=== PATIENT | female | born 1975 | race American Indian/Alaskan Native ===

== ENCOUNTER 2016-09-13 14:08 | Inpatient (IN) | payer MEDICAID ==
[2016-09-13 14:23] VITALS: BMI 36.5
--- NOTE | 2016-09-13 14:59 | ED PDOC ---
Arrival/HPI - General Chief Complaint: Dizziness/Lightheaded Time Seen by Provider: 09/13/16 14:54 Historian: Patient - History of Present Illness Narrative History of Present Illness (Text): 09/13/16 14:55 A 40 year old female presents to the emergency department complaining of a light pressure sensation in her head for the past few weeks. Patient states she has hx of poorly controlled hypertension. Pt also c/o heart burn sensation, states this feels similar to her previous hear burn symptoms. Pt also reports she has LLE heaviness, with which she woke up this morning. Ambulates with steady gait. Patient denies any fever, chills, nausea, vomiting, abdominal pain , chest pain, shortness of breath or any other complaints. Time/Duration: Other (few weeks) Symptom Course: Unchanged Quality: Other Context: Other Past Medical History - Provider Review Nursing Documentation Reviewed: Yes - Cardiac Hx Cardiac Disorders: Yes Hx Hypertension: Yes - Pulmonary Hx Respiratory Disorders: No - Neurological Hx Neurological Disorder: No - HEENT Hx HEENT Disorder: No - Renal Hx Renal Disorder: No - Endocrine/Metabolic Hx Endocrine Disorders: No - Hematological/Oncological Hx Blood Disorders: No - Integumentary Hx Dermatological Disorder: No - Musculoskeletal/Rheumatological Hx Musculoskeletal Disorders: No - Gastrointestinal Hx Gastrointestinal Disorders: Yes Hx Gastroesophageal Reflux: Yes - Genitourinary/Gynecological Hx Genitourinary Disorders: Yes (Left kidney mass) - Psychiatric Hx Psychophysiologic Disorder: No Hx Substance Use: No - Surgical History Hx Appendectomy: Yes Family/Social History - Physician Review Nursing Documentation Reviewed: Yes Family/Social History: No Known Family HX Smoking Status: Never Smoked Hx Alcohol Use: Yes Frequency of alcohol use: Socially Hx Substance Use: No Allergies/Home Meds Allergies/Adverse Reactions: Allergies morphine Allergy (Verified 09/13/16 14:23) RASH Home Medications: Home Meds Medication Instructions Recorded Confirmed Ranitidine HCl [Zantac] 150 mg PO BID 09/13/16 09/13/16 Physical Exam - Physical Exam Narrative Physical Exam (Text): - Review of Systems Constitutional: Normal. absent: Fatigue, Weight Change, Fevers Eyes: Normal ENT: Normal Respiratory: Normal absent: SOB, Cough, Sputum Cardiovascular: Normal absent: Chest pain, Palpitations, Syncope Gastrointestinal: Normal absent: Abdominal pain, Diarrhea, Nausea, Vomiting Genitourinary: Normal. absent: Dysuria, Frequency, Hematuria Musculoskeletal: (+) Left lower extremity heaviness absent: Arthralgias, Back Pain, Neck Pain Skin: Normal Neurological: (+) Light head pressure absent: Focal Weakness Endocrine: Normal Hemo/Lymphatic: Normal Psychiatric: Normal - Physical exam Patient appears age appropriate, speaking full sentences without difficulty - Systems Exam Head: Present: Atraumatic, Normocephalic Pupils: Present: PERRL Extraocular Muscles: Present: EOMI Conjunctiva: Present: Normal Mouth: Present: Moist Mucous Membranes Neck: Present: Normal Range of Motion. No: MIDLINE TENDERNESS, Paraspinal Tenderness Respiratory/Chest: Present: Clear to Auscultation, Good Air Exchange. No: Respiratory Distress, Accessory Muscle Use, Tachypnic Cardiovascular: Present: Regular Rate and Rhythm, Normal S1, S2, Peripheral Pulses Present. No: Murmurs Abdomen: Present: Normal Bowel Sounds, No: Tenderness, Peritoneal Signs, Rebound, Guarding, Distention Back: Present: Normal Inspection. No: Midline Tenderness, Paraspinal Tenderness Upper Extremity: Present: Normal Inspection. No: Cyanosis, Edema Lower Extremity: Present: Normal Inspection. No: Edema Neurological: Present: GCS=15, Speech Normal, cranial nerves II through XII fully intact with no cerebellar abnormality, neuro-sensory fully intact. No focal neurological deficits. Skin: Present: Warm, Dry, Normal Color. No: Rashes Lymphatic: Present: OX3, NI, NC Psychiatric: Present: Alert, Oriented x 3, Normal Insight, Normal Concentration Vital Signs Reviewed: Yes Vital Signs Temp Pulse Resp BP Pulse Ox 09/13/16 17:56 98 H 16 203/74 H 98 09/13/16 16:45 98 H 16 156/111 H 98 09/13/16 14:23 99.1 F 88 16 164/100 H 98 Temperature: Afebrile Blood Pressure: Hypertensive Pulse: Regular Respiratory Rate: Normal Appearance: Positive for: Well-Appearing, Non-Toxic, Comfortable Pain Distress: None Mental Status: Positive for: Alert and Oriented X 3 Medical Decision Making ED Course and Treatment: 09/13/16 14:55 Impression: A 40 year old female with light head pressure. Patient notes left lower extremity heaviness. Physical exam unremarkable, no focal neurological deficits. She is moving bilateral upper and lower extremities with no restriction, 5 out of 5 strength, and no pronator drift. Plan: -- Labs, imaging -- Reassess and disposition Progress Notes: 09/13/16 17:01 EKG interpreted by ER physician. Normal sinus. No ST-segment elevations. Normal intervals. PROCEDURE: CT HEAD WITHOUT CONTRAST. IMPRESSION: No acute intracranial hemorrhage. Questionable minimal chronic periventricular white matter ischemic changes. There are vague areas of low attenuation both basal nuclei that could represent volume averaging artifact however the possibility of a tiny chronic lacunar type infarcts cannot be completely excluded. CXR IMPRESSION: No acute consolidation. 09/13/16 17:[address] Kay, will obs for further w/u pt aware of and agrees with plan no focal neurological deficits on exam 09/13/16 18:40 called to bedside, informed that pt is aphasic. pt unable to speak to sister, but speaking to myself intermittently pt then was unable to lift RUE, then LUE. pt then able to lift RUE pt is responsive and able to follow commands Dr. Haynes saw patient pt's family insistent that we transfer pt to [facility]. per family's request, gloria Daniels from [facility] MICU director. He states that he will not accept patient, recommends admission and transfer later in pt's course pt's family aware and agree with plan - Lab Interpretations Lab Results: 09/13/16 15:15 09/13/16 15:15 Lab Results 09/13/16 16:08: Urine Color Yellow, Urine Appearance Clear, Urine pH 6.0, Ur Specific Park 1.025, Urine Protein Negative, Urine Glucose (UA) Negative, Urine Ketones Trace H, Urine Blood Trace-intact H, Urine Nitrate Negative, Urine Bilirubin Negative, Urine Urobilinogen 1.0 H, Ur Leukocyte Esterase Trace H, Urine RBC 0 - 2, Urine WBC 0 - 2, Ur Epithelial Cells 1 - 3, Urine Bacteria Trace 09/13/16 15:15: PT 11.0, INR 1.02, APTT 26.6 09/13/16 15:15: WBC 8.7, RBC 3.89, Hgb 11.5 L, Hct 33.9 L, MCV 87.1, MCH 29.6, MCHC 33.9, RDW 14.0, Plt Count 314, MPV 10.8, Gran % 60.4, Lymph % (Auto) 32.2, Butler % (Auto) 6.3 H, Eos % (Auto) 0.8 L, Baso % (Auto) 0.3, Gran # 5.24, Lymph # 2.8, Butler # 0.6, Eos # 0.1, Baso # 0.03 09/13/16 15:15: Sodium 140, Potassium 4.3, Chloride 104, Carbon Dioxide 25, Anion Gap 15, BUN 12, Creatinine 1.0, Est GFR ( Amer) > 60, Est GFR (Non- Af Amer) > 60, Random Glucose 86, Calcium 9.9, Total Bilirubin 0.6, AST 22, ALT 31, Alkaline Phosphatase 48, Lactate Dehydrogenase 625, Total Creatine Kinase 169, Troponin I < 0.01, Total Protein 8.4 H, Albumin 4.5, Globulin 4.0, Albumin/ Globulin Ratio 1.1 09/13/16 14:38: POC Glucose (mg/dL) 109 - RAD Interpretation Radiology Orders: 09/13/16 15:20 CHEST PORTABLE [RAD] Stat 09/13/16 15:35 HEAD W/O CONTRAST [CT] Stat - Medication Orders Current Medication Orders: Dextrose/Sodium Chloride (Dextrose 5%/0.45% Ns 1000 Ml) 1,000 mls @ 100 mls/hr IV .Q10H LEXII Lorazepam (Ativan) 2 mg IVP ONCE ONE Stop: 09/13/16 18:40 Discontinued Medications Aspirin (Aspirin Chewable) 324 mg PO STAT STA Stop: 09/13/16 17:09 Last Admin: 09/13/16 17:23 Dose: 324 mg Hydrochlorothiazide (Microzide) 12.5 mg PO STAT STA Stop: 09/13/16 15:21 Last Admin: 09/13/16 15:41 Dose: 12.5 mg Pantoprazole Sodium (Protonix Inj) 40 mg IVP STAT STA Stop: 09/13/16 16:43 Last Admin: 09/13/16 16:54 Dose: 40 mg - Scribe Statement The provider has reviewed the documentation as recorded by the Lizzy Gray Provider Scribe Attestation: All medical record entries made by the Scribe were at my direction and personally dictated by me. I have reviewed the chart and agree that the record accurately reflects my personal performance of the history, physical exam, medical decision making, and the department course for this patient. I have also personally directed, reviewed, and agree with the discharge instructions and disposition. Disposition/Present on Arrival - Present on Arrival Any Indicators Present on Arrival: No History of DVT/PE: No History of Uncontrolled Diabetes: No Urinary Catheter: No History of Decub. Ulcer: No History Surgical Site Infection Following: None - Disposition Have Diagnosis and Disposition been Completed?: Yes Diagnosis: Hypertension Disposition: HOSPITALIZED Disposition Time: 17:14 Patient Plan: Observation Patient Problems: Current Active Problems Problem Status Onset Hypertension Acute Condition: FAIR
[2016-09-13 15:26] LABS: ADD MANUAL DIFF? NO
[2016-09-13 16:02] LABS: BASO # 0.03 K/mm3 (0.0-2.0); BASO % 0.3 % (0.0-3.0); EOS # 0.1 (0.0-0.7); EOS % 0.8 % (1.5-5.0); GRAN # 5.24 (1.4-6.5); GRAN % 60.4 % (50.0-68.0); HEMATOCRIT 33.9 % (36.0-48.0); LYMPH # 2.8 (1.2-3.4); LYMPH % 32.2 % (22.0-35.0); MEAN CELL VOLUME 87.1 fL (80.0-105.0); MEAN CORPUSCULAR HEMOGLOBIN 29.6 pg (25.0-35.0); MEAN CORPUSCULAR HGB CONC 33.9 g/dl (31.0-37.0); MEAN PLATELET VOLUME 10.8 fl (7.0-11.0); MONO # 0.6 (0.1-0.6); MONO % 6.3 % (1.0-6.0); PLATELET COUNT 314 10^3/uL (120.0-450.0); WHITE BLOOD COUNT 8.7 10^3/ul (4.5-11.0)
[2016-09-13 16:07] LABS: ALB/GLOB RATIO 1.1 (1.1-1.8); ALKALINE PHOSPHATASE 48 U/L (38-133); ALT/SGPT 31 U/L (7-56); AST/SGOT 22 U/L (15-39); BILIRUBIN,TOTAL 0.6 mg/dL (0.2-1.3); BLOOD UREA NITROGEN 12 mg/dL (7-21); CALCIUM 9.9 mg/dL (8.4-10.5); CARBON DIOXIDE 25 mmol/L (21-33); CHLORIDE 104 mmol/L (98-107); GFR AFRICAN-AMERICAN > 60; GLUCOSE,RANDOM 86 mg/dL (70-110); POTASSIUM 4.3 mmol/L (3.6-5.0); SODIUM 140 mmol/L (132-148); TOTAL PROTEIN 8.4 g/dL (5.8-8.3)
[2016-09-13 16:08] LABS: INR 1.02 (0.93-1.08); PARTIAL THROMBOPLASTIN TIME 26.6 Seconds (23.7-30.8)
[2016-09-13 16:25] LABS: URINE BILIRUBIN NEGATIVE (NEGATIVE); URINE BLOOD TRACE-INTACT (NEGATIVE); URINE GLUCOSE (UA) NEGATIVE (NEGATIVE); URINE KETONE TRACE mg/dL (NEGATIVE); URINE LEUKOCYTE ESTERASE TRACE Leu/uL (NEGATIVE); URINE PROTEIN NEGATIVE mg/dL (<30 mg/dL)
[2016-09-13 16:32] LABS: URINE APPEARANCE CLEAR (CLEAR); URINE COLOR YELLOW (YELLOW)
[2016-09-13 16:53] LABS: URINE BACTERIA TRACE (NEG); URINE RBC 0 - 2 /hpf (0-2); URINE WBC 0 - 2 /hpf (0-6)
--- NOTE | 2016-09-13 16:56 | RAD ---
HISTORY: HTN COMPARISON: No prior. FINDINGS: LUNGS: No active pulmonary disease. PLEURA: No significant pleural effusion identified, no pneumothorax apparent. CARDIOVASCULAR: Heart size is upper limits of normal likely due to AP positioning. OSSEOUS STRUCTURES: No significant abnormalities. VISUALIZED UPPER ABDOMEN: Normal. OTHER FINDINGS: None. IMPRESSION: No acute consolidation.
[2016-09-13 16:57] LABS: TROPONIN I < 0.01 ng/mL
--- NOTE | 2016-09-13 17:01 | CT ---
PROCEDURE: CT HEAD WITHOUT CONTRAST. HISTORY: htn COMPARISON: None available. TECHNIQUE: Axial computed tomography images were obtained through the head/brain without intravenous contrast. Radiation dose: Total exam DLP = 822.62 mGy-cm. This CT exam was performed using one or more of the following dose reduction techniques: Automated exposure control, adjustment of the mA and/or kV according to patient size, and/or use of iterative reconstruction technique. FINDINGS: HEMORRHAGE: No acute parenchymal, subarachnoid or extra-axial hemorrhage. BRAIN: There may be some minimal chronic periventricular white matter ischemic changes. Vague areas of low attenuation the anterior limbs both internal capsules could represent some volume averaging of deep white matter deep however the possibility of a small chronic lacunar-type infarcts cannot be completely excluded. . No obvious parenchymal nor extra-axial mass or collection seen on this noncontrast study. . VENTRICLES: There is mild asymmetry of the lateral ventricles, left-sided which is slightly larger than the right felt to represent a anatomic variation. CALVARIUM: No acute calvarial fractures. PARANASAL SINUSES: Paranasal sinuses are well-developed and currently well-aerated. MASTOID AIR CELLS: Unremarkable as visualized. No inflammatory changes. OTHER FINDINGS: None. IMPRESSION: No acute intracranial hemorrhage. Questionable minimal chronic periventricular white matter ischemic changes. There are vague areas of low attenuation both basal nuclei that could represent volume averaging artifact however the possibility of a tiny chronic lacunar type infarcts cannot be completely excluded.
[2016-09-13] MEDS: Dextrose 5%/0.45% NS 1,000 ML IV SCH (18:54)
[2016-09-13] MEDS ORDERED: Labetalol 5 mg/ml Inj 20ML IV STA (18:54)
--- NOTE | 2016-09-13 20:27 | CP.PCM.HP ---
<Noble Wynn - Last Filed: 09/13/16 21:08> History of Present Illness - History of Present Illness History of Present Illness: 40F with pmh of uncontrolled HTN, Anemia, RA, 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 Upon admission to the the ED patient was able to ambulate and able to speak. Upon my evaluation of the patient later in the day, she had left sided Upper and lower extremity weakness and was aphasic. She admitted to noncompliance with any of her medications for hypertension or anemia and does not follow a doctor regularly. She was only able to communicate by moving her neck or shrugging her shoulders. Her family was present during interview and answered questions that the pt. was unable to answer. It was difficult to distinguish whether or not the patient did not want to speak or if she could not speak. She communicated the latter. However, on exam she was able to move her tongue and open her mouth and say "Ah", although it was only for 1 second. I did not appreciate any uvular deviation. The neurologist examined her and she did not move her left side. When I examined her she was able to grasp my hand with her left hand and squeeze slightly. After initial exam, per nurse, pt. was able to speak and said she was having difficulty breathing. At that time her O2 sat was 98% on room air. A short time later, she was breathing fine, but became aphasic again and did not complain of difficulty breathing. Initial workup in the ED included Head CT, which was negative for acute intracranial findings. Her EKG was NSR with no ST changes, initial troponin was negative and chest xray showed no acute pulmonary disease, no acute consolidation, and heart size was upper limits of normal. MRI showed no MRI evidence of acute infarction. On exam, she c/o headache, dizziness, chest pain, shortness of breath, right sided abdominal pain, menometorhagia, left sided upper and lower ext weakness, and not being able to speak. She denies changes in vision/hearing, neck pain, GI/ symptoms. PMH: HTN Anemia Kidney Tumor(resected) Rheumatoid Arthritis Anxiety/Depression PSH: left nephrectomy FH: Mother: from CVA at 48 Father: from Heart Failure in his 50's Aunts: HTN, Diabetes, Breast Cancer SH: lives with family Tob: denies Alc: socially Drugs: denies All: Morphine Present on Admission - Present on Admission Any Indicators Present on Admission: No Review of Systems - Constitutional Constitutional: Chills, Headache. absent: Anorexia, Fever - EENT Eyes: absent: Change in Vision Ears: Dizziness. absent: Decreased Hearing Nose/Mouth/Throat: Neck Pain. absent: Sore Throat - Cardiovascular Cardiovascular: Chest Pain (mild), Dyspnea. absent: Palpitations - Respiratory Respiratory: Dyspnea. absent: Cough - Gastrointestinal Gastrointestinal: Heartburn. absent: Hematemesis, Hematochezia - Genitourinary Genitourinary: absent: Difficulty Urinating, Dysuria, Urinary Incontinence - Reproductive: Female Reproductive:Female: Cycle <21 Days, Heavy Menses - Menstruation Menstruation: Cycle <21 Days, Heavy Menses - Musculoskeletal Musculoskeletal: Limited Range of Motion, Muscle Weakness (left side upper and lower ext), Neck Pain - Integumentary Integumentary: absent: Rash, Skin Pain, Wounds - Neurological Neurological: Abnormal Speech, Behavioral Changes, Dizziness, Focal Weakness ( left upper and lower ext), Headaches. absent: Abnormal Hearing - Psychiatric Psychiatric: Anxiety, Depression. absent: Suicidal Ideation - Endocrine Endocrine: Cold Intolorance. absent: Heat Intolorance, Palpitations, Polydipsia , Polyphagia, Polyuria Past Patient History - Past Social History Smoking Status: Never Smoked Chewing Tobacco Use: No Cigar Use: No Alcohol: Social Drugs: Denies Home Situation {Lives}: With Family - CARDIAC Hx Cardiac Disorders: Yes Hx Hypertension: Yes - PULMONARY Hx Respiratory Disorders: No - NEUROLOGICAL Hx Neurological Disorder: No - HEENT Hx HEENT Problems: No - RENAL Hx Chronic Kidney Disease: Yes Other/Comment: Left Kidney Tumor - ENDOCRINE/METABOLIC Hx Endocrine Disorders: No - HEMATOLOGICAL/ONCOLOGICAL Hx Blood Disorders: Yes Hx Anemia: Yes (Iron Def) - INTEGUMENTARY Hx Dermatological Problems: No - MUSCULOSKELETAL/RHEUMATOLOGICAL Hx Musculoskeletal Disorders: No - GASTROINTESTINAL Hx Gastrointestinal Disorders: Yes Hx Gastroesophageal Reflux: Yes - GENITOURINARY/GYNECOLOGICAL Hx Genitourinary Disorders: Yes (Left kidney mass) - PSYCHIATRIC Hx Psychophysiologic Disorder: Yes Hx Anxiety: Yes Hx Depression: Yes Hx Substance Use: No - SURGICAL HISTORY Hx Appendectomy: Yes Other/Comment: left nephrectomy - ANESTHESIA Hx Anesthesia: Yes Meds Allergies/Adverse Reactions: Allergies Allergy/AdvReac Type Severity Reaction Status Date / Time morphine Allergy RASH Verified 09/13/16 14:23 Physical Exam - Constitutional Appears: Non-toxic - Head Exam Head Exam: ATRAUMATIC, NORMOCEPHALIC - Eye Exam Eye Exam: EOMI Pupil Exam: PERRL - ENT Exam ENT Exam: Mucous Membranes Moist - Neck Exam Neck exam: Positive for: Full Rom. Negative for: Lymphadenopathy - Respiratory Exam Respiratory Exam: Clear to Auscultation Bilateral, NORMAL BREATHING PATTERN. absent: Rhonchi, Wheezes - Cardiovascular Exam Cardiovascular Exam: REGULAR RHYTHM, RRR, +S1, +S2. absent: JVD - GI/Abdominal Exam GI & Abdominal Exam: Normal Bowel Sounds, Soft, Tenderness (left side) - Extremities Exam Extremities exam: Negative for: full ROM Additional comments: weakness on left side upper and lower ext - Neurological Exam Neurological exam: Alert, CN II-XII Intact, Oriented x3 - Psychiatric Exam Psychiatric exam: Anxious, Depressed, Flat Affect Additional comments: was aphasic during exam - Skin Skin Exam: Dry, Intact, Normal Color, Warm Results - Vital Signs Recent Vital Signs: Last Vital Signs Temp 98 F 09/13/16 20:10 Pulse 88 09/13/16 20:10 Resp 16 09/13/16 20:10 BP 149/104 H 09/13/16 20:10 Pulse Ox 98 09/13/16 20:10 - Labs Result Diagrams: 09/13/16 15:15 09/13/16 15:15 Assessment & Plan - Assessment and Plan (Free Text) Assessment: 40F complains of left sided weakness and aphasia Plan: Rule out TIA -Pt was able to walk into the ED and speak, however several hours later had Left Upper and Lower extremity weakness -CT Head negative for acute - see full report -MRI Brain negative for acute - see full report -Neuro Consult - appreciate recs -Dr. Ann Haynse -Swallow Eval -Neurochecks -NPO Rule out ACX -Trops negative x1, will follow -EKG NSR with no ST changes -Chest xray Heart size upper limit of normal, no acute pulm dz. - please see full report -Echocardiogram ordered HTN -Pt. currently NPO -Enalpril 1.25mg once -lasix 20mg daily -will switch to PO meds when appropriate Anxiety/Depression/Conversion/Malingering -Psych Consult - appreciate recs -Dr. Palma -TSH -Drug Screen Abdominal Pain -US Abdomen -US Pelvis -Urine Culture - - Date & Time Date: 09/13/16 Time: 06:00 <Steven Flynn - Last Filed: 09/14/16 12:51> Results - Vital Signs Recent Vital Signs: Last Vital Signs Temp 98.7 F 09/14/16 12:00 Pulse 89 09/14/16 12:07 Resp 16 09/14/16 12:00 BP 183/106 H 09/14/16 12:07 Pulse Ox 100 09/14/16 05:32 - Labs Result Diagrams: 09/14/16 07:00 09/14/16 07:00 Attending/Attestation - Attestation I have personally seen and examined this patient.: Yes I have fully participated in the care of the patient.: Yes I have reviewed all pertinent clinical information: Yes Notes (Text): I have seen and examined patient at bedside. Agree with the above note with the following additions/ exceptions: This is 40 year old female with history of uncontrolled HTN, Anemia, RA, herniated disc, nephrectomy secondary to kidney tumor, anxiety, depression who came in walking to ER and started complaining of left sided weakness, aphasia, shaking of the whole body, generalized weakness and lightheadedness. Patients exam was benign and inconsistent. She did not have post ictal state. There was no tongue bite, urinary or bowel incontinence. VS remained unchanged during these episodes. She was noted to have elevated blood pressure. Also complained of chest pain, back pain however did not appear to be in any distress. Patients cousin expressed that patient has been very depressed for the past few weeks as she has been taking care of a 3 year old grand daughter and patients daughter has been giving her mother a very hard time. Patient will be admitted to tele for rule out CVA vs seizure although highly unlikely. CT head did not show any acute infarcts. EKG reviewed. Will make her npo, IV fluids, aspirin rectal, speech and swallow eval and neuro checks. Check lipid panel. Will consult neuro as well as psych to evaluate depression. Patient denies any suicidal or homicidal ideations. Will closely monitor BP. Currently BP is 145/90. Patient informed us that she used to follow up with Dr Tafoya for hypertension and renal tumor. Dr Steven Flynn
[2016-09-13] MEDS ORDERED: Gadodiamide 287 MG/ML VIAL (20ML) IV ONE (20:36)
[2016-09-13] MEDS ORDERED: EnalaprilAT 1.25 mg/ml Inj IVP STA (21:18)
--- NOTE | 2016-09-13 21:28 | MRI ---
EXAM: MR Head Without and With Intravenous Contrast CLINICAL HISTORY: 40 years old, female; Signs and symptoms; Weakness, extremity; Bilateral; Patient HX: ? CVA; Additional info: R/O CVA TECHNIQUE: Magnetic resonance images of the head/brain without and with intravenous contrast in multiple planes. CONTRAST: 20 mL of omniscan administered intravenously. COMPARISON: CT - HEAD W/O CONTRAST 09/13/2016 4:18:46 PM FINDINGS: Limitations: Motion artifact - mild. Brain: No intracranial hemorrhage. No abnormal enhancement. No abnormal restricted diffusion. Ventricles: No hydrocephalus. Bones/joints: No acute fracture. Sinuses: No acute sinusitis. Mastoid air cells: No mastoid effusion. Orbits: Unremarkable as visualized. IMPRESSION: 1. No MRI evidence of acute infarction. 2. Incidental/non-acute findings are described above.
--- NOTE | 2016-09-14 00:37 | CON ---
DATE: 09/13/2016 HISTORY OF PRESENT ILLNESS: This is a 40-year-old black female with past medical history of left kid joyce cancer, status post left nephrectomy several years ago who came to the Emergency Room with high b lood pressure and also complained of light pressure sensation in her head for the past few weeks and poorly controlled hypertension and heartburn and feels similar to her previous heartburn also ____ co mplained of left lower extremity heaviness and we were called to evaluate the patient. The patient u nable to give any history, is only by showing me the fingers as she could answer. She is unable to move, now left-sided weakness and left arm weakness and left leg weakness and called to evaluate the patient. PAST MEDICAL HISTORY: Of GERD/gastroesophageal reflux, status post left kidney nephrectomy and high blood pressure. REVIEW OF SYSTEMS: A 10-point review of system showed left-sided weakness and aphasic and cousin is at bedside. PHYSICAL EXAMINATION: HEENT: Normocephalic and atraumatic. NECK: Supple. NEUROLOGIC: Awake and aphasic. Pupils reactive. No facial asymmetry. Tongue midline. Motor examin ation: Moves her right side, right upper extremity and right lower extremity spontaneously and again st gravity. Unable to move left arm and left leg. Both plantars deep tendon reflexes 1+. Both plan tars are equivocal. Sensory appears intact on the right side. Appears intact on the right side, louisa ble to do on the left. examination, she had a little jerking movement of all over the body while the nurse was flushin g her port in the left wrist. IMPRESSION: This is a 40-year-old black female with past medical history of hypertension, uncontroll ed, and left nephrectomy who came with left-sided weakness. The patient walked into the Emergency Ro om and started feeling weak the ER to a level that she became aphasic and unable to move the left floyd e and possibly a right hemispheric lesion. CAT scan of the head was done, which was negative for ble ed. PLAN: Will do MRI of the head with and without gadolinium, a carotid Doppler and EEG. Tadeo Haynes MD cc: [id number] TT: 09/14/2016 00:36:50 Confirmation # [id number] Dictation # [id number]
--- NOTE | 2016-09-14 00:46 | CT ---
EXAM: CT Head Without Intravenous Contrast CLINICAL HISTORY: 40 years old, female; Signs and symptoms; Altered mental status/memory loss; Confusion or disorientation; Additional info: AMS TECHNIQUE: Axial computed tomography images of the head/brain without intravenous contrast. This CT exam was performed using one or more of the following dose reduction techniques: automated exposure control, adjustment of the mA and/or kV according to patient size, and/or use of iterative reconstruction technique. COMPARISON: CT - HEAD W/O CONTRAST 09/13/2016 4:18:46 PM FINDINGS: Brain: No intracranial hemorrhage. No mass. No definite edema. Ventricles: No hydrocephalus. Bones/joints: No acute fracture. Soft tissues: Unremarkable. Sinuses: No acute sinusitis. Mastoid air cells: No mastoid effusion. Orbits: Unremarkable as visualized. IMPRESSION: 1. No acute intracranial abnormality. 2. Incidental/non-acute findings are described above.
[2016-09-14] MEDS: levETIRAcetam 1,000 MG in Sodium Chloride 0.9% 100 ML IV SCH ×2 (00:53→10:30)
--- NOTE | 2016-09-14 01:04 | CP.PCM.PN ---
<Jeremiah Roth - Last Filed: 09/14/16 00:55> Subjective - Date & Time of Evaluation Date of Evaluation: 09/14/16 Time of Evaluation: 23:35 - Subjective Subjective: Rapid response note for Dr. Flynn Rapid response called for 268-1 at 2330. According to nursing staff, pt arrived on the floor verbal and responsive. At this time, pt called for nursing help. When the nurse arrived at the scene, pt was aphasic and unable to respond to commands. Initial vital signs were BP - 163/103, HR - 84, O2 sat - 100%, Fingerstick glucose - 71. Upon arrival to bedside, pt was able to display appropriate game developer strength on right side, but was flaccid on left side of body. Pt was also aphasic at this time. Once physical exam was completed, pt became more alert and responsive. She asked "Why were there so many people in her room? " Pt states she did not remember previous few minutes when she was unable to move or speak. Pt was again reassessed. At this time, pt displayed fully intact motor and sensation on the right side, however, the left side did have noticeable weakness with strength being 2/5 throughout her entire left side. Pt was then sent for CT scan of her head. Objective - Vital Signs/Intake and Output Vital Signs (last 24 hours): Temp Pulse Resp BP Pulse Ox 98.1 F 85 20 130/85 99 09/13/16 23:21 09/13/16 23:21 09/13/16 23:21 09/13/16 23:21 09/13/16 21:40 - Medications Medications: Current Medications Furosemide (Lasix) 20 mg IVP DAILY [facility] Dextrose/Sodium Chloride (Dextrose 5%/0.45% Ns 1000 Ml) 1,000 mls @ 100 mls/hr IV .Q10H [facility] Last Admin: 09/13/16 18:54 Dose: 100 mls/hr Levetiracetam 1,000 mg/ Sodium (Chloride) 110 mls @ 440 mls/hr IV Q12 [facility] - Labs Labs: PT 11.0 Seconds (9.9-11.8) 09/13/16 15:15 INR 1.02 (0.93-1.08) 09/13/16 15:15 APTT 26.6 Seconds (23.7-30.8) 09/13/16 15:15 - Constitutional Appears: Toxic, No Acute Distress - Head Exam Head Exam: ATRAUMATIC, NORMAL INSPECTION, NORMOCEPHALIC - ENT Exam ENT Exam: Mucous Membranes Dry - Respiratory Exam Respiratory Exam: Clear to Ausculation Bilateral, NORMAL BREATHING PATTERN. absent: Rales, Rhonchi, Wheezes - Cardiovascular Exam Cardiovascular Exam: RRR, +S1, +S2 - GI/Abdominal Exam GI & Abdominal Exam: Soft, Normal Bowel Sounds. absent: Tenderness - Extremities Exam Extremities Exam: absent: Calf Tenderness, Pedal Edema - Neurological Exam Neurological Exam: Alert, Awake, Oriented x3 Neuro motor strength exam: Left Upper Extremity: 2/1, Right Upper Extremity: 5, Left Lower Extremity: 2/1, Right Lower Extremity: 5 Additional comments: Intermittent episodes of aphasia - Skin Skin Exam: Intact, Normal Color, Warm Assessment and Plan - Assessment and Plan (Free Text) Plan: 40 y/o F presents with rapid response called for AMS. Pt with stable vitals throughout episode. Pt also with intermittent episodes of aphasia and nonresponsiveness. Pt underwent Head CT and Brain MRI earlier upon admission to the hospital, both which were negative for any acute findings. Pt had repeat Head CT which showed no acute abnormalities. Pt will be started on Keppra for possible seizure like activity. Pt will remain on telemetry for further monitoring and management. Seen, reviewed, and discussed with attending Ira PGY-1 <Delfin Flynn - Last Filed: 09/22/16 03:57> Objective - Vital Signs/Intake and Output Vital Signs (last 24 hours): Temp Pulse Resp BP Pulse Ox 98.0 F 91 H 18 107/73 98 09/16/16 06:00 09/16/16 06:00 09/16/16 06:00 09/16/16 06:00 09/16/16 06:00 - Labs Labs: 09/16/16 07:30 09/16/16 07:30 PT 11.0 Seconds (9.9-11.8) 09/13/16 15:15 INR 1.02 (0.93-1.08) 09/13/16 15:15 APTT 26.6 Seconds (23.7-30.8) 09/13/16 15:15
[2016-09-14] MEDS: Dextrose 5%/0.45% NS 1,000 ML IV SCH (06:06)
[2016-09-14 07:16] LABS: IRON 136 ug/dL (45-180)
[2016-09-14 07:26] LABS: TROPONIN I < 0.01 ng/mL
[2016-09-14 07:59] LABS: HEMATOCRIT 32.5 % (36.0-48.0); MEAN CELL VOLUME 86.9 fL (80.0-105.0); MEAN CORPUSCULAR HEMOGLOBIN 29.7 pg (25.0-35.0); MEAN CORPUSCULAR HGB CONC 34.2 g/dl (31.0-37.0); RED CELL DISTRIBUTION WIDTH 13.8 % (11.5-14.5); WHITE BLOOD COUNT 7.9 10^3/ul (4.5-11.0)
[2016-09-14 08:12] LABS: BLOOD UREA NITROGEN 9 mg/dL (7-21); CALCIUM 9.6 mg/dL (8.4-10.5); CARBON DIOXIDE 23 mmol/L (21-33); CHLORIDE 103 mmol/L (98-107); GFR AFRICAN-AMERICAN > 60; GLUCOSE,RANDOM 101 mg/dL (70-110); PHOSPHOROUS 5.1 mg/dL (2.5-4.5); POTASSIUM 3.8 mmol/L (3.6-5.0); SODIUM 137 mmol/L (132-148)
--- NOTE | 2016-09-14 09:53 | CARD ---
APPROVED REPORT EKG Measurement Heart [id number] <Conclusion> Normal sinus rhythm LVH by voltage NSSTW changes LAD
--- NOTE | 2016-09-14 10:40 | CP.PCM.PN ---
<Noble Wynn - Last Filed: 09/14/16 15:45> Subjective - Date & Time of Evaluation Date of Evaluation: 09/14/16 Time of Evaluation: 10:20 - Subjective Subjective: 40F with pmh of uncontrolled HTN, Anemia, RA, 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 Upon admission to the the ED patient was able to ambulate and able to speak. However became aphasic later in the day. Overnight a rapid was called for a likely pseudoseizure. Today she is speaking in complete sentences and able to use her left side. Her strength is 5/5 on both left and right UE's. She did not have any complaints today, but is concerned as to why these episodes of transient neurologic deficits are happening to her. It was explained that due to her multiple head CT's and Brain MRI have been negative, that is is likely a psychogenic cause in nature. Objective - Vital Signs/Intake and Output Vital Signs (last 24 hours): Temp Pulse Resp BP Pulse Ox 98.8 F 89 20 126/77 100 09/14/16 05:32 09/14/16 06:53 09/14/16 05:32 09/14/16 06:53 09/14/16 05:32 - Medications Medications: Current Medications Acetaminophen (Tylenol 650 Mg Supp) 650 mg RC Q6H PRN PRN Reason: Fever >100.4 F Furosemide (Lasix) 20 mg IVP DAILY [facility] Dextrose/Sodium Chloride (Dextrose 5%/0.45% Ns 1000 Ml) 1,000 mls @ 100 mls/hr IV .Q10H [facility] Last Admin: 09/14/16 06:06 Dose: 100 mls/hr Levetiracetam 1,000 mg/ Sodium (Chloride) 110 mls @ 440 mls/hr IV Q12 [facility] Last Admin: 09/14/16 00:53 Dose: 440 mls/hr - Labs Labs: PT 11.0 Seconds (9.9-11.8) 09/13/16 15:15 INR 1.02 (0.93-1.08) 09/13/16 15:15 APTT 26.6 Seconds (23.7-30.8) 09/13/16 15:15 - Constitutional Appears: No Acute Distress - Head Exam Head Exam: ATRAUMATIC, NORMOCEPHALIC - Eye Exam Eye Exam: EOMI - ENT Exam ENT Exam: Mucous Membranes Moist - Neck Exam Neck Exam: Full ROM. absent: Lymphadenopathy, Thyromegaly - Respiratory Exam Respiratory Exam: Clear to Ausculation Bilateral, NORMAL BREATHING PATTERN. absent: Rhonchi, Wheezes - Cardiovascular Exam Cardiovascular Exam: REGULAR RHYTHM, +S1, +S2. absent: JVD - GI/Abdominal Exam GI & Abdominal Exam: Soft, Normal Bowel Sounds. absent: Tenderness - Extremities Exam Extremities Exam: Full ROM - Neurological Exam Neurological Exam: Alert, Awake, Oriented x3 Neuro motor strength exam: Left Upper Extremity: 5, Right Upper Extremity: 5 - Psychiatric Exam Psychiatric exam: Flat Affect - Skin Skin Exam: Dry, Intact, Normal Color, Warm Assessment and Plan - Assessment and Plan (Free Text) Plan: Rule out TIA -Pt was able to walk into the ED and speak, however several hours later had Left Upper and Lower extremity weakness -CT Head negative for acute - see full report -MRI Brain negative for acute - see full report -Neuro Consult - appreciate recs -Dr. Ann Haynes likely psychogenic in nature, would benefit from outpatient therapy Ativan prn -Swallow Eval -bedside swallow eval passed -Neurochecks -changed to normal diet Rule out ACX -Trops negative x3 -EKG NSR with no ST changes -Chest xray Heart size upper limit of normal, no acute pulm dz. - please see full report -Echocardiogram needs official reading HTN HCTZ 25mg daily Anxiety/Depression/Conversion/Malingering -Psych Consult - appreciate recs -Dr. Palma -TSH normal -Drug Screen -positive for cannabis Anemia -B12 normal -Iron Studies Abdominal Pain -US Abdomen -US Pelvis -Urine Culture - Gram + cocci PPX -DVT SCD's <Steven Flynn B - Last Filed: 09/15/16 18:56> Objective - Vital Signs/Intake and Output Vital Signs (last 24 hours): Temp Pulse Resp BP Pulse Ox 99.1 F 99 H 20 133/98 H 98 09/15/16 06:00 09/15/16 11:00 09/15/16 06:00 09/15/16 11:00 09/15/16 06:00 Intake and Output: 09/15/16 09/15/16 06:59 18:59 Intake Total 240 Output Total 0 Balance 240 - Medications Medications: Current Medications Acetaminophen (Tylenol 325mg Tab) 650 mg PO Q6H PRN PRN Reason: Pain, Mild (1-3) Last Admin: 09/15/16 08:25 Dose: 650 mg Acetaminophen/Butalbital/Caffeine (Fioricet) 1 tab PO Q4H PRN PRN Reason: Headache Hydrochlorothiazide (Hydrodiuril) 25 mg PO DAILY [facility] Lorazepam (Ativan) 1 mg PO Q6 PRN; Protocol PRN Reason: Anxiety Last Admin: 09/15/16 08:25 Dose: 1 mg - Labs Labs: PT 11.0 Seconds (9.9-11.8) 09/13/16 15:15 INR 1.02 (0.93-1.08) 09/13/16 15:15 APTT 26.6 Seconds (23.7-30.8) 09/13/16 15:15 Attending/Attestation - Attestation I have personally seen and examined this patient.: Yes I have fully participated in the care of the patient.: Yes I have reviewed all pertinent clinical information, including history, physical exam and plan: Yes Notes (Text): I have seen and examined patient at bedside. 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 CT scan, MRI brain came back negative. Echo result is pending. Neurologist evaluated the patient and it was thought that all signs and symptoms were psychogenic in nature. Her extreme stress and anxiety is putting her in catatonic state. Patients cousin expressed that patient has been very depressed for the past few weeks as she has been taking care of a 3 year old grand daughter and patients daughter has been giving her mother a very hard time. Psych consult was obtained. Awaiting their recommendations. As she is complaining of abdominal pain, will order abdomena nd pelvic ultrasound. Her UDS positive for cannabis. Patient informed us that she used to follow up with Dr Tafoya for hypertension and renal tumor. Dr Steven Flynn
--- NOTE | 2016-09-14 11:54 | CP.PCM.CON ---
History of Present Illness - History of Present Illness History of Present Illness: 40F with pmh of uncontrolled HTN, ckd Anemia, RA, nephrectomy 2/2 kidney tumor used to follow up with us in office, last seen in 2010, is admitted with AMS, episodic inability to speak. She underwent work up for cva which was negative. she has long standing hx of htn, non compliant with meds. 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) - ENDOCRINE/METABOLIC Hx Endocrine Disorders: No - HEMATOLOGICAL/ONCOLOGICAL Hx Blood Disorders: Yes Hx Anemia: Yes (Iron Def) Hx Cancer: Yes (Renal CA) - INTEGUMENTARY Hx Dermatological Problems: No - MUSCULOSKELETAL/RHEUMATOLOGICAL Hx Falls: Yes - GASTROINTESTINAL Hx Gastrointestinal Disorders: Yes Hx Gastroesophageal Reflux: Yes - GENITOURINARY/GYNECOLOGICAL Hx Genitourinary Disorders: No - PSYCHIATRIC Hx Substance Use: Yes (marijuana) - SURGICAL HISTORY Hx Surgeries: Yes Hx Appendectomy: Yes Other/Comment: left nephrectomy - ANESTHESIA Hx Anesthesia: Yes Meds Allergies/Adverse Reactions: Allergies Allergy/AdvReac Type Severity Reaction Status Date / Time morphine Allergy RASH Verified 09/13/16 14:23 - Medications Medications: Current Medications Acetaminophen (Tylenol 650 Mg Supp) 650 mg RC Q6H PRN PRN Reason: Fever >100.4 F Levetiracetam 1,000 mg/ Sodium (Chloride) 110 mls @ 440 mls/hr IV Q12 [facility] Last Admin: 09/14/16 10:30 Dose: 440 mls/hr Lisinopril (Zestril) 10 mg PO DAILY [facility] Physical Exam - Constitutional Appears: Non-toxic, No Acute Distress Additional comments: initially on exam was aphasic but then suddently started talking AO times 3 - Head Exam Head Exam: NORMAL INSPECTION - Eye Exam Eye Exam: Normal appearance - ENT Exam ENT Exam: Mucous Membranes Moist - Neck Exam Neck exam: Positive for: Normal Inspection - Respiratory Exam Respiratory Exam: NORMAL BREATHING PATTERN - Cardiovascular Exam Cardiovascular Exam: +S1 - GI/Abdominal Exam GI & Abdominal Exam: Soft - Extremities Exam Extremities exam: Positive for: normal inspection - Neurological Exam Neurological exam: Oriented x3 - Psychiatric Exam Psychiatric exam: Flat Affect - Skin Skin Exam: Dry Results - Vital Signs Recent Vital Signs: Last Vital Signs Temp 98.8 F 09/14/16 05:32 Pulse 89 09/14/16 06:53 Resp 20 09/14/16 05:32 BP 157/93 H 09/14/16 10:32 Pulse Ox 100 09/14/16 05:32 - Labs Result Diagrams: 09/16/16 07:30 09/16/16 07:30 Assessment & Plan - Assessment and Plan (Free Text) Plan: htn/ckd/AMS/RA unclear onset and duration of htn, recommend sending UA, urine pr cr ratio ultrasound of kidney renal function is stable continue current meds for bp Neurology on board for AMS work up discussed with primary team will continue to follow thank you for the consult
--- NOTE | 2016-09-14 12:32 | PN ---
DATE: 09/14/2016 CHIEF COMPLAINT: Follow up for evaluation for CVA versus generalized weakness. SUBJECTIVE: The patient seen and examined at bedside. Her blood pressure has continued to be systol ically and diastolically elevated. Her MRI of the brain showed no acute intracranial abnormality, no t show any acute infarct all, just some chronic ischemic changes. Upon consultation when talking to her, she looks the other way. She has a very flat affect. She has normal tone in all extremities an d with reinforcement she is able to pull and push with her extremities without any difficulty. There is no aphasia noted. She speaks clearly when asking direct questions. She says under a lot of stre ss. I discussed with a cousin on the phone in detail in regards to her cousins condition. Swallow e suma was done at bedside as per me the patient is able to swallow without any difficulty, drinks a few sips of water without any problems. She will be given Tylenol for pain. PAST MEDICAL HISTORY: History of uncontrolled hypertension, anemia, nephrectomy secondary to kidney tumor 8 years ago. REVIEW OF SYSTEMS: A 14-point review of systems is negative except for the HPI. ALLERGIES: MORPHINE. CURRENT MEDICATIONS: Reviewed via nurse reconciliation sheet. SOCIAL HISTORY: No illicit drug use, smoking, or ETOH abuse at this time. FAMILY HISTORY: Noncontributory. PHYSICAL EXAMINATION: VITAL SIGNS: Temperature 98.8, pulse rate of 76, blood pressure of 160/113, respiratory rate of 20, oxygen saturation 100% on room air. GENERAL: The patient is sitting up in bed in no acute distress. Flat affect, with poor eye contact. HEENT: Atraumatic, normocephalic. PERRLA. Extraocular muscles intact. NECK: Supple, no JVD, no adenopathy noted. LUNGS: Clear to auscultation. No adventitious sounds. HEART: S1, S2, normal rate and rhythm. No murmurs, rubs, or gallops. ABDOMEN: Soft, nontender, nondistended. Bowel sounds present. EXTREMITIES: No clubbing, no cyanosis. Peripheral pulses 2+ felt bilaterally. NEUROLOGIC: The patient is alert, oriented to person, place, month and year. She has a very flat af fect. She has a very monotone voice. Speech and thoughts are disorganized, poor attention and slow thought process. Cranial nerves II through XII are intact. MOTOR: Normal tone, normal bulk of muscle. Moves all extremities equally. No pronator drift seen. SENSORY: Light touch, pinprick, proprioception, vibration intact. Toes are downgoing bilaterally. DEEP TENDON REFLEXES: 2+ throughout. COORDINATION: Dnxaxx-sd-ftbg intact. GAIT: Deferred for now. LABORATORIES: Sodium is 137, potassium 3.8, chloride 103, carbon dioxide 23, BUN of 9, creatinine at 1. Random glucose of 101. ASSESSMENT AND PLAN: This is a 40-year-old -[place] woman with a history of uncontrolled hyp ertension, history of anemia, nephrectomy secondary to kidney tumor resected 8 years ago, who came in with lightheadedness for 2 weeks, heartburn, left lower extremity heaviness and became difficult to complete sentences and transiently became aphasic. Though her neuro exam is nonfocal and her MRI of the brain shows no acute intracranial abnormality as well as multiple CAT scans of the head; it seems this is likely a nonorganic cause to her presenting symptoms. I feel like there is a level of depre ssion and anxiety under ____ putting her in a catatonic state. AT THIS TIME, RECOMMEND: 1. Psychiatric consult, possible either at inpatient psychiatric facility versus outpatient followup with psychiatrist as per psychiatry recommendations. 2. Keep systolic blood pressure between 130 and 140 and slowly bring it lower at 20 mmHg at a time. 3. Aspirin 81 mg p.o. daily for stroke prevention and continue with current present medical manageme nt. No further neurological workup needed at this time, there is no need for an EEG. These are not seizu re-type episodes. Bravo Haynes MD cc: [id number] TT: 09/14/2016 12:31:26 Confirmation # [id number] Dictation # [id number] derek
--- NOTE | 2016-09-14 12:35 | CON ---
DATE: 09/14/2016 The patient is a 40-year-old single -[place] female with a history of intermittent depression , though with no formal prior psychiatric history, no psychiatric admissions, no suicide attempts, no history of psychiatric medication management, who psychiatrist is following up with behavioral distu carolann. Records indicate the patient has had intermittent episodes of aphasia and unresponsiveness; however, with negative head CT and a brain MRI as well as repeat head CT, which showed no acute abnor malities. I met with patient at bedside and the patient is alert and oriented x 3. She is calm, cooperative an d easily communicates needs. Delusions were not elicited during the course of my conversation. The patient denied having any hallucinations and she was not overtly disorganized during my conversation. The patient does indicate that she is having multiple stressors and she has been depressed and stre ssed out; however, not hopeless or suicidal or homicidal. 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 The pat vijay currently babysits her 3-year-old granddaughter and she feels that she is obligated to do this a nd now she very much enjoys spending time with her 3-year-old granddaughter. She does admit to feeli ng overwhelmed sometimes and feels unappreciated by her own daughter. The patient demonstrates fair insight into her current stressors and her insight is also fair in that she is going to follow up wit h therapy recommendation. However, she feels that her mood symptoms relate to her current stressors are congruent to the severity of her stressors. Regarding her recent episodes in the unit she denies having, history of these episodes in the past. PSYCHIATRIC HISTORY: The patient denies having any prior any psychiatric admissions, no suicide atte mpts. Regarding medication management, her primary care doctor prescribed her an antidepressant whic h she did not take. She took very briefly and she spotted almost immediately a few weeks ago. SOCIAL HISTORY: The patient is single. She has 1 daughter who lives with her as well as a 3-year-ol d granddaughter which patient takes care of all the time. The patient denies any drug or alcohol iss ues. The patient is unemployed and she has been unhappy about this and indicates some financial issu es at this time. VITAL SIGNS: Reviewed and they are within normal limits. LABORATORY DATA: Also reviewed by this provider. MEDICATIONS: Reviewed and there were no psychiatric medications treating the patient at this time. IMPRESSION: Depression, not otherwise specified. Rule out major depressive disorder, mild to modera te. Anxiety disorder, not otherwise specified; rule out contribution of adjustment disorder with mix ed depression and anxiety, rule out conversion disorder.. RECOMMENDATIONS: 1. At this time, I recommend that the patient does have psychiatric followup including therapy once she is medically cleared. The patient is not willing to try any medications at this time; however, s he is willing to obtain a referral for therapy followup which can be beneficial if current symptoms a re related to conversion disorder. This provider will not start any medications for her as she is ad amant about not taking any psychiatric medication on the unit while she is being treated medically or on an outpatient basis. 2. The patient is psychiatrically cleared at this time. Please make sure that clinical social worker does fo llow up with patient to obtain this referral as the patient is interested. Please reconsult p.r.n. if patient's symptom ____ changes or if she does request followup by psychiat rist ____. Kimberlyn Palma MD cc: [id number] TT: 09/14/2016 12:34:57 Confirmation # [id number] Dictation # [id number] tn
[2016-09-15] MEDS ORDERED: Apap-Butalbital-Caffeine 325-50-40mg Tab PO PRN (08:46)
--- NOTE | 2016-09-15 09:31 | CARD ---
APPROVED REPORT EXAM: Two-dimensional and M-mode echocardiogram with Doppler and color Doppler. Other Information Quality : AverageRhythm : INDICATION Chest Pain , HBP 2D DIMENSIONS IVSd1.1 (0.7-1.1cm)LVDd3.5 (3.9-5.9cm) PWd1.1 (0.7-1.1cm)LVDs2.2 (2.5-4.0cm) FS (%) 38.4 %LVEF (%)69.0 (>50%) M-Mode DIMENSIONS Left Atrium (MM)3.30 (2.5-4.0cm)Aortic Root3.00 (2.2-3.7cm) Aortic Cusp Exc.2.00 (1.5-2.0cm) Aortic Valve AoV Peak Kpsodbho405.0cm/sAoV VTI29.2cmLVOT Peak Fvqhwqfq256.0cm/s LVOT VTI20.80cm Mitral Valve MV E Tdwusaqu02.6cm/sMV A Stxloidg80.4cm/sE/A ratio1.5 TDI Lateral E' Peak V10.00cm/sMedial E' Peak V7.41cm/sE/Lateral E'7.1 E/Medial E'9.5 Tricuspid Valve TR Peak Hmpyswok097cm/sRAP LVQVLRXI45ivXkRY Peak Gr.14mmHg [id number] LEFT VENTRICLE The left ventricle is normal size. There is normal left ventricular wall thickness. The left ventricular function is normal. The left ventricular ejection fraction is within the normal range. There is normal LV segmental wall motion. RIGHT VENTRICLE The right ventricle is normal size. ATRIA The left atrium size is normal. The right atrium size is normal. The interatrial septum is intact with no evidence for an atrial septal defect. AORTIC VALVE The aortic valve is normal in structure. MITRAL VALVE The mitral valve is normal in structure. TRICUSPID VALVE The tricuspid valve is normal in structure. There is trace tricuspid regurgitation. PULMONIC VALVE The pulmonary valve is normal in structure. There is trace pulmonic valvular regurgitation. GREAT VESSELS The aortic root is normal in size. PERICARDIAL EFFUSION There is no pericardial effusion. <Conclusion> The left ventricle is normal size. There is normal left ventricular wall thickness. The left ventricular function is normal.
--- NOTE | 2016-09-15 15:29 | CP.PCM.PN ---
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 She later became aphasic and had left sided weakness and parasthesias. By the following day all of her neurological deficits resolved. Today, she is concerned as to why she has these episodes and c/o of a headache not relieved with Tylenol. She was advised to follow up with psych for further workup. She had no other complaints and denied chest pain, difficulty breathing, N/V/D, or any GI/ symptoms. Objective - Vital Signs/Intake and Output Vital Signs (last 24 hours): Temp Pulse Resp BP Pulse Ox 99.1 F 99 H 20 133/98 H 98 09/15/16 06:00 09/15/16 11:00 09/15/16 06:00 09/15/16 11:00 09/15/16 06:00 Intake and Output: 09/15/16 09/15/16 06:59 18:59 Intake Total 240 Output Total 0 Balance 240 - Medications Medications: Current Medications Acetaminophen (Tylenol 325mg Tab) 650 mg PO Q6H PRN PRN Reason: Pain, Mild (1-3) Last Admin: 09/15/16 08:25 Dose: 650 mg Acetaminophen/Butalbital/Caffeine (Fioricet) 1 tab PO Q4H PRN PRN Reason: Headache Hydrochlorothiazide (Hydrodiuril) 25 mg PO DAILY LEXII Lorazepam (Ativan) 1 mg PO Q6 PRN; Protocol PRN Reason: Anxiety Last Admin: 09/15/16 08:25 Dose: 1 mg - Labs Labs: PT 11.0 Seconds (9.9-11.8) 09/13/16 15:15 INR 1.02 (0.93-1.08) 09/13/16 15:15 APTT 26.6 Seconds (23.7-30.8) 09/13/16 15:15 - Constitutional Appears: Non-toxic, No Acute Distress - Head Exam Head Exam: ATRAUMATIC, NORMOCEPHALIC - Eye Exam Eye Exam: EOMI Pupil Exam: NORMAL ACCOMODATION - ENT Exam ENT Exam: Mucous Membranes Moist, Normal Exam - Neck Exam Neck Exam: Full ROM, Normal Inspection. absent: Lymphadenopathy - Respiratory Exam Respiratory Exam: Clear to Ausculation Bilateral, NORMAL BREATHING PATTERN - Cardiovascular Exam Cardiovascular Exam: REGULAR RHYTHM, +S1, +S2. absent: Murmur - GI/Abdominal Exam GI & Abdominal Exam: Soft, Tenderness, Normal Bowel Sounds Additional comments: fullness to palpation in lower abdomen - Extremities Exam Extremities Exam: Full ROM. absent: Joint Swelling, Pedal Edema - Neurological Exam Neurological Exam: Alert, Awake, Oriented x3 - Psychiatric Exam Psychiatric exam: Normal Affect, Normal Mood - Skin Skin Exam: Dry, Intact, Normal Color, Warm Assessment and Plan - Assessment and Plan (Free Text) Plan: Rule out TIA -Pt was able to walk into the ED and speak, however several hours later had Left Upper and Lower extremity weakness -CT Head negative for acute - see full report -MRI Brain negative for acute - see full report -Carotid Artery us pending official read -Neuro Consult - appreciate recs -Dr. Ann Haynes likely psychogenic in nature, would benefit from outpatient therapy Ativan prn -Swallow Eval -bedside swallow eval passed -Neurochecks -changed to normal diet Rule out ACS -Trops negative x3 -EKG NSR with no ST changes -Chest xray Heart size upper limit of normal, no acute pulm dz. - please see full report -Echocardiogram - please see full report -LV normal size and function EF 69% HTN - stabilzed since admission HCTZ 25mg daily s/p nephrectomy, uncontrolled HTN Nephro consult - Dr. Nayak -serum aldosterone -serum renin -UA -trace blood, ketones, & leuk est, High urobilinogen 1.0 high -urine Cr & urine protein. WNL Anxiety/Depression/Conversion/Malingering -Psych Consult - appreciate recs -Dr. Palma -TSH normal -Drug Screen -positive for cannabis Anemia -B12 normal -Iron Studies normal -Folate received Lower Abdominal Pain/Fullness -US Abdomen pending official read -US Pelvis pending official read -Urine Culture - Gram + cocci Headache -added Fiorcet q4 prn PPX -DVT SCD's <Steven Flynn - Last Filed: 09/15/16 18:59> Objective - Vital Signs/Intake and Output Vital Signs (last 24 hours): Temp Pulse Resp BP Pulse Ox 98.5 F 91 H 20 119/81 95 09/15/16 18:00 09/15/16 18:00 09/15/16 18:00 09/15/16 18:00 09/15/16 18:00 Intake and Output: 09/15/16 09/15/16 06:59 18:59 Intake Total 240 Output Total 0 Balance 240 - Medications Medications: Current Medications Acetaminophen (Tylenol 325mg Tab) 650 mg PO Q6H PRN PRN Reason: Pain, Mild (1-3) Last Admin: 09/15/16 08:25 Dose: 650 mg Acetaminophen/Butalbital/Caffeine (Fioricet) 1 tab PO Q4H PRN PRN Reason: Headache Hydrochlorothiazide (Hydrodiuril) 25 mg PO DAILY LEXII Last Admin: 09/15/16 09:29 Dose: 25 mg Lorazepam (Ativan) 1 mg PO Q6 PRN; Protocol PRN Reason: Anxiety Last Admin: 09/15/16 08:25 Dose: 1 mg - Labs Labs: PT 11.0 Seconds (9.9-11.8) 09/13/16 15:15 INR 1.02 (0.93-1.08) 09/13/16 15:15 APTT 26.6 Seconds (23.7-30.8) 09/13/16 15:15 Attending/Attestation - Attestation I have personally seen and examined this patient.: Yes I have fully participated in the care of the patient.: Yes I have reviewed all pertinent clinical information, including history, physical exam and plan: Yes Notes (Text): I have seen and examined patient at bedside. 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 CT scan, MRI brain came back negative. Echo result is pending. Neurologist evaluated the patient and it was thought that all signs and symptoms were psychogenic in nature. Her extreme stress and anxiety is putting her in catatonic state. Patients cousin expressed that patient has been very depressed for the past few weeks as she has been taking care of a 3 year old grand daughter and patients daughter has been giving her mother a very hard time. Psych consult was obtained and Dr Palma recommended to keep the patient overnight and get psych outpatient followup referral from social group worker. Abdomen and pelvic ultrasound pending at this time. Her UDS positive for cannabis. Patient complains of headache which is not being resolved with tylenol, will start fioricet. Her hypertension has improved. Patient informed us that she used to follow up with Dr Tafoya for hypertension and renal tumor. Dr Steven Flynn
--- NOTE | 2016-09-15 15:32 | US ---
HISTORY: R sided Abdominal Pain COMPARISON: None. TECHNIQUE: Sonographic evaluation of the abdomen. FINDINGS: LIVER: Measures 14 cm. Mildly increased echogenicity of the liver parenchyma. No intrahepatic bile duct dilatation. GALLBLADDER: The gallbladder is not abnormally distended. There is no gallbladder wall edema or pericholecystic fluid. No shadowing or echogenic calculus identified. According to the technologist, the sonographic Bell's sign was not present. COMMON BILE DUCT: Measures 4-5 mm. No stones. No dilatation. PANCREAS: The pancreas not optimally imaged. RIGHT KIDNEY: Measures 10.4 x 5.5 x 6.6cm. Normal echogenicity. No calculus, mass, or hydronephrosis. LEFT KIDNEY: Not seen. SPLEEN: Normal in size and contour. No mass. AORTA: No aneurysmal dilatation within the visualized segments of the aorta. IVC: The visualized portions of the IVC appear unremarkable. OTHER FINDINGS: The visualized segments of the portal vein appear patent. IMPRESSION: No acute findings. Heterogeneous echotexture of the hepatic parenchyma could be due to hepatic steatosis versus parenchymal disease. If indicated, MRI can be obtained for better evaluation. Pancreas not optimally seen. Left kidney not seen.
--- NOTE | 2016-09-15 16:08 | US ---
HISTORY: Abdominal pain COMPARISON: CT abdomen pelvis from 01/26/2016 TECHNIQUE: Transabdominal ultrasonography evaluation. FINDINGS: UTERUS: Measures appears anteverted and measures approximately 11.3 x 6.5 x 6.2 centimeters. The uterus appears bulky in appearance with severe heterogeneity in the myometrium. Based on comparison to prior CT from 01/26/2016, multiple fibroids are seen within the uterus. Discrete fibroids where suboptimally measured. ENDOMETRIUM: Not clearly visible. CERVIX: Suboptimally imaged. RIGHT OVARY: Not seen. LEFT OVARY: Not seen. FREE FLUID: No significant free fluid noted. OTHER FINDINGS: None. IMPRESSION: Limited evaluation demonstrated a bulky appearing uterus with severe heterogeneity of the myometrium likely from multiple fibroids. For further evaluation, MRI of the pelvis with contrast should be considered provided there are no contraindications. Both ovaries were not visualized.
[2016-09-15 18:50] VITALS: PULSE 91
[2016-09-16 07:01] VITALS: BP 107/73; RESP 18; O2SAT 98
[2016-09-16 07:09] VITALS: TEMP 98
[2016-09-16 07:45] LABS: ADD MANUAL DIFF? NO
[2016-09-16 07:49] LABS: BASO # 0.03 K/mm3 (0.0-2.0); BASO % 0.4 % (0.0-3.0); EOS # 0.1 (0.0-0.7); EOS % 1.3 % (1.5-5.0); GRAN # 4.39 (1.4-6.5); GRAN % 61.2 % (50.0-68.0); HEMATOCRIT 36.2 % (36.0-48.0); LYMPH # 2.2 (1.2-3.4); LYMPH % 30.5 % (22.0-35.0); MEAN CELL VOLUME 86.6 fL (80.0-105.0); MEAN CORPUSCULAR HEMOGLOBIN 28.9 pg (25.0-35.0); MEAN CORPUSCULAR HGB CONC 33.4 g/dl (31.0-37.0); MEAN PLATELET VOLUME 9.7 fl (7.0-11.0); MONO # 0.5 (0.1-0.6); MONO % 6.6 % (1.0-6.0); PLATELET COUNT 271 10^3/uL (120.0-450.0); RED CELL DISTRIBUTION WIDTH 13.6 % (11.5-14.5); WHITE BLOOD COUNT 7.2 10^3/ul (4.5-11.0)
[2016-09-16 07:58] LABS: ALB/GLOB RATIO 1.1 (1.1-1.8); ALKALINE PHOSPHATASE 46 U/L (38-133); ALT/SGPT 32 U/L (7-56); AST/SGOT 17 U/L (15-39); BILIRUBIN,TOTAL 0.9 mg/dL (0.2-1.3); BLOOD UREA NITROGEN 16 mg/dL (7-21); CALCIUM 9.9 mg/dL (8.4-10.5); CARBON DIOXIDE 24 mmol/L (21-33); CHLORIDE 101 mmol/L (98-107); GFR AFRICAN-AMERICAN > 60; GLUCOSE,RANDOM 100 mg/dL (70-110); POTASSIUM 4.2 mmol/L (3.6-5.0); SODIUM 137 mmol/L (132-148); TOTAL PROTEIN 8.9 g/dL (5.8-8.3)
[2016-09-16 08:27] LABS: MAGNESIUM 1.9 mg/dL (1.7-2.2); PHOSPHOROUS 4.3 mg/dL (2.5-4.5)
--- NOTE | 2016-09-16 09:00 | US ---
PROCEDURE: Bilateral carotid artery duplex ultrasound HISTORY: Carotid stenosis PHYSICIAN(S): Arthur Triplett MD. TECHNIQUE: Duplex sonography and color-flow Doppler were used to evaluate the carotid bifurcations and limited segments of the vertebral arteries bilaterally. The exam is limited by body habitus. FINDINGS: There is mild smooth heterogeneous plaque noted at the carotid bifurcations bilaterally. The peak systolic velocity in the proximal right internal carotid artery is 100 cm/sec. This corresponds to a 20 to 39% proximal right ICA stenosis. Normal systolic velocities are noted in the proximal right external carotid artery. There is antegrade flow in the right vertebral artery. The peak systolic velocity in the proximal left internal carotid artery is 85 cm/sec. This corresponds to a 20 to 39% proximal left ICA stenosis. Normal systolic velocities are noted in the proximal left external carotid artery. There is antegrade flow in the left vertebral artery. IMPRESSION: 1. Bilateral 20-39% proximal ICA stenoses. 2. Antegrade flow in both vertebral arteries.
--- NOTE | 2016-09-16 14:44 | CP.PCM.DIS ---
<WynnNoble - Last Filed: 09/16/16 16:09> Provider - Provider Date of Admission: 09/14/16 08:08 Attending physician: Etienne Anthony MD Time Spent in preparation of Discharge (in minutes): 35 Diagnosis - Discharge Diagnosis (1) Hypertension Status: Acute (2) Stress Status: Acute Hospital Course - Lab Results Lab Results: Most Recent Lab Values WBC 7.2 10^3/ul (4.5-11.0) 09/16/16 07:30 RBC 4.18 10^6/uL (3.5-6.1) 09/16/16 07:30 Hgb 12.1 gm/dL (12.0-16.0) 09/16/16 07:30 Hct 36.2 % (36.0-48.0) 09/16/16 07:30 MCV 86.6 fL (80.0-105.0) 09/16/16 07:30 MCH 28.9 pg (25.0-35.0) 09/16/16 07:30 MCHC 33.4 g/dl (31.0-37.0) 09/16/16 07:30 RDW 13.6 % (11.5-14.5) 09/16/16 07:30 Plt Count 271 10^3/uL (120.0-450.0) 09/16/16 07:30 MPV 9.7 fl (7.0-11.0) 09/16/16 07:30 Gran % 61.2 % (50.0-68.0) 09/16/16 07:30 Lymph % (Auto) 30.5 % (22.0-35.0) 09/16/16 07:30 Bulloch % (Auto) 6.6 % (1.0-6.0) H 09/16/16 07:30 Eos % (Auto) 1.3 % (1.5-5.0) L 09/16/16 07:30 Baso % (Auto) 0.4 % (0.0-3.0) 09/16/16 07:30 Gran # 4.39 (1.4-6.5) 09/16/16 07:30 Lymph # 2.2 (1.2-3.4) 09/16/16 07:30 Bulloch # 0.5 (0.1-0.6) 09/16/16 07:30 Eos # 0.1 (0.0-0.7) 09/16/16 07:30 Baso # 0.03 K/mm3 (0.0-2.0) 09/16/16 07:30 PT 11.0 Seconds (9.9-11.8) 09/13/16 15:15 INR 1.02 (0.93-1.08) 09/13/16 15:15 APTT 26.6 Seconds (23.7-30.8) 09/13/16 15:15 Sodium 137 mmol/L (132-148) 09/16/16 07:30 Potassium 4.2 mmol/L (3.6-5.0) 09/16/16 07:30 Chloride 101 mmol/L (98-107) 09/16/16 07:30 Carbon Dioxide 24 mmol/L (21-33) 09/16/16 07:30 Anion Gap 16 (10-20) 09/16/16 07:30 BUN 16 mg/dL (7-21) 09/16/16 07:30 Creatinine 1.1 mg/dL (0.5-1.4) 09/16/16 07:30 Est GFR ( Amer) > 60 09/16/16 07:30 Est GFR (Non-Af Amer) 55 09/16/16 07:30 POC Glucose (mg/dL) 109 mg/dL (65-110) 09/13/16 14:38 Random Glucose 100 mg/dL (70-110) 09/16/16 07:30 Calcium 9.9 mg/dL (8.4-10.5) 09/16/16 07:30 Phosphorus 4.3 mg/dL (2.5-4.5) 09/16/16 07:30 Magnesium 1.9 mg/dL (1.7-2.2) 09/16/16 07:30 Iron 136 ug/dL (45-180) 09/14/16 06:49 TIBC 346 ug/dL (265-497) 09/14/16 06:49 % Saturation 39 % (20-55) 09/14/16 06:49 Ferritin 18.7 ng/mL 09/14/16 06:49 Total Bilirubin 0.9 mg/dL (0.2-1.3) 09/16/16 07:30 AST 17 U/L (15-39) 09/16/16 07:30 ALT 32 U/L (7-56) 09/16/16 07:30 Alkaline Phosphatase 46 U/L (38-133) 09/16/16 07:30 Lactate Dehydrogenase 625 U/L (333-699) 09/13/16 15:15 Total Creatine Kinase 169 U/L (35-230) 09/13/16 15:15 Troponin I < 0.01 ng/mL 09/14/16 06:49 Total Protein 8.9 g/dL (5.8-8.3) H 09/16/16 07:30 Albumin 4.7 g/dL (3.0-4.8) 09/16/16 07:30 Globulin 4.3 gm/dL 09/16/16 07:30 Albumin/Globulin Ratio 1.1 (1.1-1.8) 09/16/16 07:30 Vitamin B12 459 pg/mL (239-931) 09/14/16 06:49 TSH 3rd Generation 2.62 mIU/mL (0.46-4.68) 09/14/16 07:00 Urine Color Yellow (YELLOW) 09/13/16 16:08 Urine Appearance Clear (CLEAR) 09/13/16 16:08 Urine pH 6.0 (4.7-8.0) 09/13/16 16:08 Ur Specific [place] 1.025 (1.005-1.035) 09/13/16 16:08 Urine Protein Negative mg/dL (<30 mg/dL) 09/13/16 16:08 Urine Glucose (UA) Negative mg/dL (NEGATIVE) 09/13/16 16:08 Urine Ketones Trace mg/dL (NEGATIVE) H 09/13/16 16:08 Urine Blood Trace-intact (NEGATIVE) H 09/13/16 16:08 Urine Nitrate Negative (NEGATIVE) 09/13/16 16:08 Urine Bilirubin Negative (NEGATIVE) 09/13/16 16:08 Urine Urobilinogen 1.0 E.U./dL (<1 E.U./dL) H 09/13/16 16:08 Ur Leukocyte Esterase Trace Kyle/uL (NEGATIVE) H 09/13/16 16:08 Urine RBC 0 - 2 /hpf (0-2) 09/13/16 16:08 Urine WBC 0 - 2 /hpf (0-6) 09/13/16 16:08 Ur Epithelial Cells 1 - 3 /hpf (0-5) 09/13/16 16:08 Urine Bacteria Trace (NEG) 09/13/16 16:08 Ur Random Creatinine 471 mg/dL 09/15/16 03:19 U Random Total Protein 5 mg/L 09/15/16 03:19 Urine Opiates Screen Negative (NEGATIVE) 09/13/16 22:31 Urine Methadone Screen Negative (NEGATIVE) 09/13/16 22:31 Ur Barbiturates Screen Negative (NEGATIVE) 09/13/16 22:31 Ur Phencyclidine Scrn Negative (NEGATIVE) 09/13/16 22:31 Ur Amphetamines Screen Negative (NEGATIVE) 09/13/16 22:31 U Benzodiazepines Scrn Negative (NEGATIVE) 09/13/16 22:31 U Oth Cocaine Metabols Negative (NEGATIVE) 09/13/16 22:31 U Cannabinoids Screen Positive (NEGATIVE) H 09/13/16 22:31 Alcohol, Quantitative < 10 mg/dL (0-10) 09/13/16 15:15 - Hospital Course Hospital Course: 40F with pmh of uncontrolled HTN, Anemia, RA, 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 Upon admission to the the ED patient was able to ambulate and able to speak. Upon my evaluation of the patient later in the day, she had left sided Upper and lower extremity weakness and was aphasic. She admitted to noncompliance with any of her medications for hypertension or anemia and does not follow a doctor regularly. She was only able to communicate by moving her neck or shrugging her shoulders. Initial workup in the ED included Head CT, which was negative for acute intracranial findings. Her EKG was NSR with no ST changes, initial troponin was negative and chest xray showed no acute pulmonary disease, no acute consolidation, and heart size was upper limits of normal. MRI showed no MRI evidence of acute infarction. A rapid response was called during her first night for siezure like activity. Repeat CT did not show any evidence of acute changes. The following day, all of the pt's focal neurologic deficits has resolved. She was able to move her entire left side and speak in complete sentences. Neuro was consulted and after evaluation recommended outpatient therapy as her condition is likely psychogenic in nature. Psych was consulted and recommended outpatient therapy for possible Anxiety/Major Depressive Disorder/Conversion Disorder. Due to her abdominal fullness/tenderness, an Abdominal US was orderd and had evidence of uterine fibroids. She was strongly urged to follow up with her [employer]. This is a brief account of her stay. For more details, please see her chart. - Date & Time of H&P Date of H&P: 09/16/16 Time of H&P: 14:00 Discharge Exam - Head Exam Head Exam: NORMAL INSPECTION - Eye Exam Eye Exam: EOMI - ENT Exam ENT Exam: Mucous Membranes Moist - Neck Exam Neck exam: Full Rom - Respiratory Exam Respiratory Exam: Clear to PA & Lateral, NORMAL BREATHING PATTERN, UNREMARKABLE - Cardiovascular Exam Cardiovascular Exam: REGULAR RHYTHM, RRR, +S1, +S2. absent: JVD - GI/Abdominal Exam GI & Abdominal Exam: Normal Bowel Sounds, Soft, Tenderness - Extremities Exam Extremities exam: full ROM - Back Exam Back exam: absent: rash noted - Neurological Exam Neurological exam: Alert, CN II-XII Intact, Normal Gait, Oriented x3 - Psychiatric Exam Psychiatric exam: Normal Affect, Normal Mood - Skin Skin Exam: Dry, Intact, Normal Color, Warm Discharge Plan - Discharge Medications Prescriptions: hydroCHLOROthiazide [Hydrodiuril] 25 mg PO DAILY #30 tab - Follow Up Plan Condition: FAIR Disposition: HOME/ ROUTINE Instructions: Hypertension (DC), Hypertension (GEN) Additional Instructions: Patient is medically stable for discharge. Please follow up with your primary care doctor within 1 week. Please follow up with [facility] at [phone] within 1 week. Please follow up with Dr. Dos Santos, your kidney doctor within 1 week. Please follow up with your ironer within 1 week. Please start taking Hydrocholorthiazide 25mg daily for high blood pressure. Thank you for allowing us to take part in your care. Referrals: Trace Dos Santos MD [Staff Provider] - Bravo Haynes MD [Staff Provider] - Kimberlyn Palma MD [Staff Provider] - <Etienne Anthony - Last Filed: 09/17/16 15:06> Provider - Provider Date of Admission: 09/14/16 08:08 Attending physician: Etienne Anthony MD Hospital Course - Lab Results Lab Results: Most Recent Lab Values WBC 7.2 10^3/ul (4.5-11.0) 09/16/16 07:30 RBC 4.18 10^6/uL (3.5-6.1) 09/16/16 07:30 Hgb 12.1 gm/dL (12.0-16.0) 09/16/16 07:30 Hct 36.2 % (36.0-48.0) 09/16/16 07:30 MCV 86.6 fL (80.0-105.0) 09/16/16 07:30 MCH 28.9 pg (25.0-35.0) 09/16/16 07:30 MCHC 33.4 g/dl (31.0-37.0) 09/16/16 07:30 RDW 13.6 % (11.5-14.5) 09/16/16 07:30 Plt Count 271 10^3/uL (120.0-450.0) 09/16/16 07:30 MPV 9.7 fl (7.0-11.0) 09/16/16 07:30 Gran % 61.2 % (50.0-68.0) 09/16/16 07:30 Lymph % (Auto) 30.5 % (22.0-35.0) 09/16/16 07:30 Bulloch % (Auto) 6.6 % (1.0-6.0) H 09/16/16 07:30 Eos % (Auto) 1.3 % (1.5-5.0) L 09/16/16 07:30 Baso % (Auto) 0.4 % (0.0-3.0) 09/16/16 07:30 Gran # 4.39 (1.4-6.5) 09/16/16 07:30 Lymph # 2.2 (1.2-3.4) 09/16/16 07:30 Bulloch # 0.5 (0.1-0.6) 09/16/16 07:30 Eos # 0.1 (0.0-0.7) 09/16/16 07:30 Baso # 0.03 K/mm3 (0.0-2.0) 09/16/16 07:30 PT 11.0 Seconds (9.9-11.8) 09/13/16 15:15 INR 1.02 (0.93-1.08) 09/13/16 15:15 APTT 26.6 Seconds (23.7-30.8) 09/13/16 15:15 Sodium 137 mmol/L (132-148) 09/16/16 07:30 Potassium 4.2 mmol/L (3.6-5.0) 09/16/16 07:30 Chloride 101 mmol/L (98-107) 09/16/16 07:30 Carbon Dioxide 24 mmol/L (21-33) 09/16/16 07:30 Anion Gap 16 (10-20) 09/16/16 07:30 BUN 16 mg/dL (7-21) 09/16/16 07:30 Creatinine 1.1 mg/dL (0.5-1.4) 09/16/16 07:30 Est GFR ( Amer) > 60 09/16/16 07:30 Est GFR (Non-Af Amer) 55 09/16/16 07:30 POC Glucose (mg/dL) 109 mg/dL (65-110) 09/13/16 14:38 Random Glucose 100 mg/dL (70-110) 09/16/16 07:30 Calcium 9.9 mg/dL (8.4-10.5) 09/16/16 07:30 Phosphorus 4.3 mg/dL (2.5-4.5) 09/16/16 07:30 Magnesium 1.9 mg/dL (1.7-2.2) 09/16/16 07:30 Iron 136 ug/dL (45-180) 09/14/16 06:49 TIBC 346 ug/dL (265-497) 09/14/16 06:49 % Saturation 39 % (20-55) 09/14/16 06:49 Ferritin 18.7 ng/mL 09/14/16 06:49 Total Bilirubin 0.9 mg/dL (0.2-1.3) 09/16/16 07:30 AST 17 U/L (15-39) 09/16/16 07:30 ALT 32 U/L (7-56) 09/16/16 07:30 Alkaline Phosphatase 46 U/L (38-133) 09/16/16 07:30 Lactate Dehydrogenase 625 U/L (333-699) 09/13/16 15:15 Total Creatine Kinase 169 U/L (35-230) 09/13/16 15:15 Troponin I < 0.01 ng/mL 09/14/16 06:49 Total Protein 8.9 g/dL (5.8-8.3) H 09/16/16 07:30 Albumin 4.7 g/dL (3.0-4.8) 09/16/16 07:30 Globulin 4.3 gm/dL 09/16/16 07:30 Albumin/Globulin Ratio 1.1 (1.1-1.8) 09/16/16 07:30 Vitamin B12 459 pg/mL (239-931) 09/14/16 06:49 TSH 3rd Generation 2.62 mIU/mL (0.46-4.68) 09/14/16 07:00 Urine Color Yellow (YELLOW) 09/13/16 16:08 Urine Appearance Clear (CLEAR) 09/13/16 16:08 Urine pH 6.0 (4.7-8.0) 09/13/16 16:08 Ur Specific [place] 1.025 (1.005-1.035) 09/13/16 16:08 Urine Protein Negative mg/dL (<30 mg/dL) 09/13/16 16:08 Urine Glucose (UA) Negative mg/dL (NEGATIVE) 09/13/16 16:08 Urine Ketones Trace mg/dL (NEGATIVE) H 09/13/16 16:08 Urine Blood Trace-intact (NEGATIVE) H 09/13/16 16:08 Urine Nitrate Negative (NEGATIVE) 09/13/16 16:08 Urine Bilirubin Negative (NEGATIVE) 09/13/16 16:08 Urine Urobilinogen 1.0 E.U./dL (<1 E.U./dL) H 09/13/16 16:08 Ur Leukocyte Esterase Trace Kyle/uL (NEGATIVE) H 09/13/16 16:08 Urine RBC 0 - 2 /hpf (0-2) 09/13/16 16:08 Urine WBC 0 - 2 /hpf (0-6) 09/13/16 16:08 Ur Epithelial Cells 1 - 3 /hpf (0-5) 09/13/16 16:08 Urine Bacteria Trace (NEG) 09/13/16 16:08 Ur Random Creatinine 471 mg/dL 09/15/16 03:19 U Random Total Protein 5 mg/L 09/15/16 03:19 Urine Opiates Screen Negative (NEGATIVE) 09/13/16 22:31 Urine Methadone Screen Negative (NEGATIVE) 09/13/16 22:31 Ur Barbiturates Screen Negative (NEGATIVE) 09/13/16 22:31 Ur Phencyclidine Scrn Negative (NEGATIVE) 09/13/16 22:31 Ur Amphetamines Screen Negative (NEGATIVE) 09/13/16 22:31 U Benzodiazepines Scrn Negative (NEGATIVE) 09/13/16 22:31 U Oth Cocaine Metabols Negative (NEGATIVE) 09/13/16 22:31 U Cannabinoids Screen Positive (NEGATIVE) H 09/13/16 22:31 Alcohol, Quantitative < 10 mg/dL (0-10) 09/13/16 15:15 Attending/Attestation - Attestation I have personally seen and examined this patient.: Yes I have fully participated in the care of the patient.: Yes I have reviewed all pertinent clinical information, including history, physical exam and plan: Yes Notes (Text): 09/17/16 14:51 Attending note; Patient seen and examined with the resident. 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 CT scan, MRI brain came back negative. Neurologist evaluated the patient and it was thought that all signs and symptoms were psychogenic in nature. Her extreme stress and anxiety is putting her in catatonic state. Psychiatric evaluation appreciated. Cleared for discharge. Abdomen and pelvic ultrasound showed fibroid uterus. Her UDS positive for cannabis. Her hypertension has improved. Nephrology evaluation with Dr. Dr. dos santos appreciated. Physical therapy evaluation appreciated. Patient will be discharged home. Diagnosis; Depression Hypertension Anemia Nephrectomy
--- NOTE | 2016-09-16 14:59 | CP.PCM.PN ---
Subjective - Date & Time of Evaluation Date of Evaluation: 09/16/16 Time of Evaluation: 11:55 - Subjective Subjective: Follow up Nephrology Consultation Note Assessment: Hypertensive urgency, obesity stress, ? coversion disorder hx of unilateral nephrectomy for kidney tumor Plan BP well controlled being only on single agent as HCTZ diuretic !! her initial elevated BP may be related to her stress/psych condition secondary HTN work up can be completed by checking renin, aldosterone, metanephrines and renal artery doppler pt to exercise, loose weight and follow low salt diet. may continue with her HCTZ for now and can be assessed as outpt whether it can be d/myles stress management. Further work up for as per primary team Thanks for allowing me to participate in care of your patient. pt can be d/c from renal perspective and f/up as outpt in office. Please call if any Qs. d/w team Dr Trace Nayak Office: [phone] Subjective: Noted events overnight. Patients feels okay. Denies chest pain, palpitation, shortness of breath, leg swelling. reports lot of stress Physical Examination: General Appearance: Comfortable, in no acute respiratory distress, co- operative. she is obese Vitals reviewed and noted as below Lungs: Normal respiratory rate/effort. Breath sounds bilateral equal and clear Heart: Normal rate. s1s2 normal. No rub or gallop. Extremities: no edema. Neurological: Patient is alert, awake and oriented to person, place and time. No focal deficit. Strength bilateral appropriate and equal Skin: Warm and dry. Normal turgor. No rash. Palpitation: Normal elasticity for age Abdomen: Abdomen is soft. Bowel sounds +. There is no abdominal tenderness, no guarding/rigidity or organomegaly : kidney or bladder not palpable Labs/imaging reviewed. Past medical history, past surgical history, family history, social history, allergy reviewed Objective - Vital Signs/Intake and Output Vital Signs (last 24 hours): Temp Pulse Resp BP Pulse Ox 98.0 F 91 H 18 107/73 98 09/16/16 06:00 09/16/16 06:00 09/16/16 06:00 09/16/16 06:00 09/16/16 06:00 Intake and Output: 09/16/16 09/16/16 06:59 18:59 Intake Total 360 240 Output Total 600 Balance -240 240 - Medications Medications: Current Medications Acetaminophen (Tylenol 325mg Tab) 650 mg PO Q6H PRN PRN Reason: Pain, Mild (1-3) Last Admin: 09/16/16 09:04 Dose: 650 mg Acetaminophen/Butalbital/Caffeine (Fioricet) 1 tab PO Q4H PRN PRN Reason: Headache Hydrochlorothiazide (Hydrodiuril) 25 mg PO DAILY LEXII Last Admin: 09/16/16 09:04 Dose: 25 mg Lorazepam (Ativan) 1 mg PO Q6 PRN; Protocol PRN Reason: Anxiety Last Admin: 09/15/16 21:35 Dose: 1 mg Ondansetron HCl (Zofran Inj) 4 mg IVP Q4H PRN PRN Reason: Nausea/Vomiting Last Admin: 09/15/16 22:34 Dose: 4 mg - Labs Labs: 09/16/16 07:30 09/16/16 07:30 PT 11.0 Seconds (9.9-11.8) 09/13/16 15:15 INR 1.02 (0.93-1.08) 09/13/16 15:15 APTT 26.6 Seconds (23.7-30.8) 09/13/16 15:15
--- NOTE | 2016-09-16 20:12 | US ---
PROCEDURE: Bilateral renal artery duplex ultrasound. CLINICAL HISTORY: Renal artery stenosis. Uncontrolled hypertension. Evaluate for renovascular hypertension. Previous left nephrectomy. PHYSICIAN(S): Arthur Triplett M.D. TECHNIQUE: Duplex sonography with color-flow Doppler was used to evaluate the visualized segments of the main renal arteries. The patient was evaluated in a fasting state. Imaging in a supine and decubitus position was performed. Limited evaluation of the arcuate waveforms and resistive indices were performed. FINDINGS: The overall quality of the study is adequate. The the right kidney is normal in size shape and location. It measures 12.8 cm in length. No evidence of hydronephrosis is seen. Renal parenchyma is normal in echotexture. The main right renal artery is well visualized from the aorta to the hilum. The peak systolic velocity in the right main renal artery is 140 cm/sec. This is consistent with a 0 to 49% stenosis in the main right renal artery. The arcuate waveforms are normal. The resistive index is normal. The left kidney has been removed. IMPRESSION: 1. The right main renal artery is well visualized and patent without a sonographically significant stenosis. 2. The right kidney is normal in size shape and appearance. There is no hydronephrosis. 3. Status post left nephrectomy.
[2016-09-19 15:06] LABS: ALDO/PRA RATIO 11.1 Ratio (0.9-28.9)
[2016-09-20 13:04] LABS: METANEPHRINES 27 pg/mL (<=57); TOTAL METANEPHRINES 182 pg/mL (<=205)
== END 2016-09-16 17:27 | disposition home or self-care (01) | DRG 134 ==
LOC: ED 14:08 → ERH 17:14 → 2RNO 21:55 → OBSVTOIN 09-14 08:08 → 3RSO 09-14 17:50
PROVIDERS: ADMIT Internal Medicine; ATTEND Internal Medicine
DX: I16.0 Hypertensive urgency (principal); F43.9 Reaction to severe stress, unspecified; R47.01 Aphasia; I12.9 Hypertensive chronic kidney disease with stage 1 through stage 4 chronic kidney disease, or unspecified chronic kidney disease; N18.9 Chronic kidney disease, unspecified; M06.9 Rheumatoid arthritis, unspecified; R53.1 Weakness; K21.9 Gastro-esophageal reflux disease without esophagitis; F32.9 Major depressive disorder, single episode, unspecified; F41.9 Anxiety disorder, unspecified; D63.1 Anemia in chronic kidney disease; R51 Headache; E66.9 Obesity, unspecified; D25.9 Leiomyoma of uterus, unspecified; Z91.19 Patient's noncompliance with other medical treatment and regimen; Z91.14 Patient's other noncompliance with medication regimen; Z85.528 Personal history of other malignant neoplasm of kidney; Z90.5 Acquired absence of kidney; Z87.891 Personal history of nicotine dependence; Z82.3 Family history of stroke; Z80.3 Family history of malignant neoplasm of breast; Z83.3 Family history of diabetes mellitus; Z82.49 Family history of ischemic heart disease and other diseases of the circulatory system

== ENCOUNTER 2016-10-26 11:22 | Emergency (ER) | payer MEDICAID ==
[2016-10-26 11:22] VITALS: BMI 36.5
[2016-10-26 11:30] VITALS: TEMP 99.1
[2016-10-26] MEDS ORDERED: Sodium Chloride 0.9% 1,000 ML IV STA (12:06)
--- NOTE | 2016-10-26 13:10 | ED PDOC ---
Arrival/HPI - General Chief Complaint: Cough, Cold, Congestion Time Seen by Provider: 10/26/16 12:05 Historian: Patient - History of Present Illness Narrative History of Present Illness (Text): 10/26/16 13:08 40yr old female presents today with 3 day history of worsening sore throat with difficulty swallowing. pt states she feels like she has pain to the left side of the neck. took tylenol for pain. c/o pain with swallowing. c/o change in voice. c/o severe sharp stabbing pain to the throat with difficult swallowing. pt states she was started on zithromax 2 days ago without improvement. Time/Duration: Other (3 days) Symptom Course: Worsening Quality: Stabbing Severity Level: 8, 9 Past Medical History - Provider Review Nursing Documentation Reviewed: Yes - Travel History Have you recently traveled outside [place] w/in the past 3 mons?: No - Tetanus Immunization Tetanus Immunization: Unknown - Cardiac Hx Cardiac Disorders: Yes Hx Hypertension: Yes - Pulmonary Hx Respiratory Disorders: No - Neurological Hx Neurological Disorder: Yes Hx Migraine: Yes - HEENT Hx HEENT Disorder: No - Renal Hx Renal Disorder: Yes Hx Renal Cancer: Yes (Left Kidney Tumor with nephrectomy) - Endocrine/Metabolic Hx Endocrine Disorders: No - Hematological/Oncological Hx Blood Disorders: Yes Hx Anemia: Yes (Iron Def) Hx Cancer: Yes (Renal CA) - Integumentary Hx Dermatological Disorder: No - Musculoskeletal/Rheumatological Hx Musculoskeletal Disorders: Yes Hx Falls: Yes - Gastrointestinal Hx Gastrointestinal Disorders: Yes Hx Gastroesophageal Reflux: Yes - Genitourinary/Gynecological Hx Genitourinary Disorders: No - Psychiatric Hx Psychophysiologic Disorder: Yes Hx Anxiety: Yes Hx Depression: Yes Hx Substance Use: Yes (marijuana) - Surgical History Hx Appendectomy: Yes Other/Comment: left nephrectomy - Anesthesia Hx Anesthesia: Yes Family/Social History - Physician Review Nursing Documentation Reviewed: Yes Family/Social History: Unknown Family HX Smoking Status: Former Smoker Hx Alcohol Use: Yes Frequency of alcohol use: Socially Hx Substance Use: Yes (marijuana) Allergies/Home Meds Allergies/Adverse Reactions: Allergies morphine Allergy (Verified 09/13/16 14:23) RASH Home Medications: Home Meds Medication Instructions Recorded Confirmed Losartan [Cozaar] 50 mg PO DAILY 10/26/16 10/26/16 Omeprazole [Omeprazole] 20 mg PO DAILY 10/26/16 10/26/16 Review of Systems - Review of Systems Constitutional: Fevers. absent: Fatigue ENT: Sore Throat, Sinus Congestion Respiratory: absent: SOB, Cough Cardiovascular: absent: Chest Pain Gastrointestinal: absent: Abdominal Pain, Diarrhea, Vomiting Musculoskeletal: Neck Pain. absent: Arthralgias Skin: absent: Rash Neurological: absent: Headache, Dizziness Psychiatric: absent: Anxiety, Depression Physical Exam Vital Signs Reviewed: Yes Vital Signs Temp Pulse Resp BP Pulse Ox 10/26/16 13:00 87 18 131/79 96 10/26/16 11:30 99.1 F 90 16 132/89 96 Temperature: Afebrile Blood Pressure: Normal Pulse: Regular Respiratory Rate: Normal Appearance: Positive for: Well-Appearing, Non-Toxic, Comfortable Pain Distress: None Mental Status: Positive for: Alert and Oriented X 3 - Systems Exam Head: Present: Atraumatic Conjunctiva: Present: Normal Ears: Present: Normal, NORMAL TM Mouth: Present: Moist Mucous Membranes, Normal Lips, Normal Tounge. No: Drooling, Trismus Pharnyx: Present: ERYTHEMA, EXUDATE, Muffled/Hoarse Voice. No: TONSILS ENLARGED , Peritonsilar Swelling, Uvular Deviation, Strider, Soft Palate/Uvular Edema Nose (External): Present: Atraumatic Nose (Internal): Present: Normal Inspection Neck: Present: Normal Range of Motion, Lymphadenopathy, Trachea Midline Respiratory/Chest: Present: Clear to Auscultation Cardiovascular: Present: Regular Rate and Rhythm Neurological: Present: GCS=15 Skin: Present: Warm, Dry, Normal Color. No: Rashes Psychiatric: Present: Alert, Oriented x 3 Medical Decision Making ED Course and Treatment: 10/26/16 13:11 Patient is nontoxic well appearing in no distress. Vital signs are stable pt with severe sore throat; with muffled voice and left sided neck pain with difficulty/painful swallowing; will do CT r/o retropharyngeal abscess. Solu medrol 125mg IV cbc: wbc; 12.7 cmp: wnl Ct soft tissue neck; FINDINGS: NASOPHARYNX: There is mild swelling of the adenoids SUPRAHYOID NECK: There is mild swelling of the palatine tonsils. There is no airway obstruction. The glottis is normal INFRAHYOID NECK: Unremarkable larynx, hypopharynx, and supraglottic space. Vocal cords intact. MASS: None. GLANDS: Parotid and submandibular glands unremarkable. Normal size thyroid gland, without nodule. LYMPH NODES: Normal. No lymphadenopathy. CERVICAL SPINE: No fracture or focal lesion. VASCULAR STRUCTURES: Unremarkable. OTHER FINDINGS: None. IMPRESSION: Mild swelling of the tonsils and adenoids with no evidence of airway obstruction. No evidence of epiglottitis Patient reassessment: Patient feeling better after medications, vital signs stable. Moist mucous membranes. I advised follow up with primary care physician within the next 2 days, advised to increase fluids take medications as prescribed and return if symptoms worsen persist or if new symptoms develop IMPRESSION; pharyngitis Motrin every 6 hours as needed for pain/fever reduction Increase fluids Amoxicillin; 3 times daily x10 days Follow up primary care physician within the next 2 days Follow up with the ENT specialist within the next 2 days. Saltwater gargles, throat lozenges Return if symptoms worsen persist or if the symptoms develop - Lab Interpretations Lab Results: 10/26/16 13:05 10/26/16 13:05 Lab Results 10/26/16 13:05: Sodium 139, Potassium 3.9, Chloride 107, Carbon Dioxide 25, Anion Gap 11, BUN 11, Creatinine 1.0, Est GFR ( Amer) > 60, Est GFR (Non- Af Amer) > 60, Random Glucose 89, Calcium 8.9, Total Bilirubin 0.6, AST 17, ALT 26, Alkaline Phosphatase 49, Total Protein 7.5, Albumin 4.0, Globulin 3.5, Albumin/Globulin Ratio 1.1 10/26/16 13:05: WBC 12.7 H D, RBC 3.71, Hgb 10.9 L, Hct 32.6 L, MCV 87.9, MCH 29.4, MCHC 33.4, RDW 13.3, Plt Count 255, MPV 9.7, Gran % 76.6 H, Lymph % (Auto ) 16.6 L, Coos % (Auto) 5.3, Eos % (Auto) 1.3 L, Baso % (Auto) 0.2, Gran # 9.72 H, Lymph # 2.1, Coos # 0.7 H, Eos # 0.2, Baso # 0.03 - RAD Interpretation Radiology Orders: 10/26/16 12:08 NECK SOFT TISSUE W/CONTRAST [CT] Stat - Medication Orders Current Medication Orders: Discontinued Medications Sodium Chloride (Sodium Chloride 0.9%) 1,000 mls @ 999 mls/hr IV .Q1H1M STA Stop: 10/26/16 13:06 Last Admin: 10/26/16 13:00 Dose: 999 mls/hr Iohexol (Omnipaque 350 100 Ml) Confirm Administered Dose 350 mg .ROUTE .STK-MED ONE Stop: 10/26/16 13:23 Methylprednisolone (Solu-Medrol) 125 mg IVP STAT STA Stop: 10/26/16 12:07 Last Admin: 10/26/16 13:00 Dose: 125 mg Disposition/Present on Arrival - Present on Arrival Any Indicators Present on Arrival: No History of DVT/PE: No History of Uncontrolled Diabetes: No Urinary Catheter: No History of Decub. Ulcer: No History Surgical Site Infection Following: None - Disposition Have Diagnosis and Disposition been Completed?: Yes Diagnosis: Acute pharyngitis Disposition: HOME/ ROUTINE Disposition Time: 14:50 Patient Plan: Discharge Patient Problems: Current Active Problems Problem Status Onset Acute pharyngitis Acute Condition: GOOD Discharge Instructions (ExitCare): Pharyngitis (ED) Additional Instructions: Motrin every 6 hours as needed for pain/fever reduction Increase fluids Amoxicillin; 3 times daily x10 days Follow up primary care physician within the next 2 days Follow up with the ENT specialist within the next 2 days. Saltwater gargles, throat lozenges Return if symptoms worsen persist or if the symptoms develop Prescriptions: Amoxicillin 500 mg PO TID #30 tab Ibuprofen [Motrin] 600 mg PO Q6H PRN #20 tab PRN Reason: pain/fever reduction Referrals: Yola Vernon MD [Primary Care Provider] - Follow up with primary Roman Burton DO [Doctor Osteopathy] - Follow up with primary Forms: WORK NOTE
[2016-10-26 13:11] LABS: ADD MANUAL DIFF? NO
[2016-10-26 13:22] LABS: BASO # 0.03 K/mm3 (0.0-2.0); BASO % 0.2 % (0.0-3.0); EOS # 0.2 (0.0-0.7); EOS % 1.3 % (1.5-5.0); GRAN # 9.72 (1.4-6.5); GRAN % 76.6 % (50.0-68.0); HEMATOCRIT 32.6 % (36.0-48.0); LYMPH # 2.1 (1.2-3.4); LYMPH % 16.6 % (22.0-35.0); MEAN CELL VOLUME 87.9 fL (80.0-105.0); MEAN CORPUSCULAR HEMOGLOBIN 29.4 pg (25.0-35.0); MEAN CORPUSCULAR HGB CONC 33.4 g/dl (31.0-37.0); MEAN PLATELET VOLUME 9.7 fl (7.0-11.0); MONO # 0.7 (0.1-0.6); MONO % 5.3 % (1.0-6.0); PLATELET COUNT 255 10^3/uL (120.0-450.0); RED CELL DISTRIBUTION WIDTH 13.3 % (11.5-14.5); WHITE BLOOD COUNT 12.7 10^3/ul (4.5-11.0)
[2016-10-26] MEDS ORDERED: Iohexol 350 MG/100 ML VIAL ONE (13:22)
[2016-10-26 13:26] LABS: ALB/GLOB RATIO 1.1 (1.1-1.8); ALKALINE PHOSPHATASE 49 U/L (38-133); ALT/SGPT 26 U/L (7-56); AST/SGOT 17 U/L (15-39); BILIRUBIN,TOTAL 0.6 mg/dL (0.2-1.3); BLOOD UREA NITROGEN 11 mg/dL (7-21); CALCIUM 8.9 mg/dL (8.4-10.5); CARBON DIOXIDE 25 mmol/L (21-33); CHLORIDE 107 mmol/L (98-107); GFR AFRICAN-AMERICAN > 60; GLUCOSE,RANDOM 89 mg/dL (70-110); POTASSIUM 3.9 mmol/L (3.6-5.0); SODIUM 139 mmol/L (132-148); TOTAL PROTEIN 7.5 g/dL (5.8-8.3)
--- NOTE | 2016-10-26 14:16 | CT ---
PROCEDURE: CT NECK WITH CONTRAST HISTORY: neck pain/sore throat/difficulty swallowing COMPARISON: None TECHNIQUE: CT of the neck with intravenous contrast. Coronal and sagittal reformats generated. Intravenous contrast dose: 100 cc of Omni 350 Radiation dose: DLP 378 mGy-cm This CT exam was performed using one or more of the following dose reduction techniques: Automated exposure control, adjustment of the mA and/or kV according to patient size, and/or use of iterative reconstruction technique. FINDINGS: NASOPHARYNX: There is mild swelling of the adenoids SUPRAHYOID NECK: There is mild swelling of the palatine tonsils. There is no airway obstruction. The glottis is normal INFRAHYOID NECK: Unremarkable larynx, hypopharynx, and supraglottic space. Vocal cords intact. MASS: None. GLANDS: Parotid and submandibular glands unremarkable. Normal size thyroid gland, without nodule. LYMPH NODES: Normal. No lymphadenopathy. CERVICAL SPINE: No fracture or focal lesion. VASCULAR STRUCTURES: Unremarkable. OTHER FINDINGS: None. IMPRESSION: Mild swelling of the tonsils and adenoids with no evidence of airway obstruction. No evidence of epiglottitis
[2016-10-26 15:40] VITALS: BP 129/80; PULSE 78; RESP 16; O2SAT 99
== END 2016-10-26 15:42 | disposition home or self-care (01) ==
LOC: ED 11:22
DX: J02.9 Acute pharyngitis, unspecified (principal)
CPT/HCPCS: 70491; 80053; 85025; 96361; 96374; 99285; J2930; J7040; Q9967

== ENCOUNTER 2016-12-23 12:53 | Emergency (ER) | payer MEDICAID ==
[2016-12-23 13:11] VITALS: BMI 36.9
[2016-12-23 13:14] VITALS: BP 130/89; PULSE 81; RESP 18; TEMP 98.6; O2SAT 97
--- NOTE | 2016-12-23 13:32 | ED PDOC ---
Arrival/HPI - General Historian: Patient - General Chief Complaint: Lower Extremity Problem/Injury Time Seen by Provider: 12/23/16 13:27 - History of Present Illness Narrative History of Present Illness (Text): 12/23/16 13:30 41 y/o female, pmh including htn and chronic rt. knee pain, c/o rt. knee injury yesterday and painful to walk to day. Pt. stated that she has chronic rt. knee pain for months, occasionally locking sensation, twisted the rt. knee after tripped over a rug, been having pain and more painful today, walking with limping, no calf pain, no fever or chills, no chest pain or shortness of breath , no palpitation, no rash, no night sweat, no other medical or psychological complaints. (Petr Daniel) Past Medical History - Provider Review Nursing Documentation Reviewed: Yes - Infectious Disease Hx of Infectious Diseases: None - Tetanus Immunization Tetanus Immunization: Unknown - Cardiac Hx Cardiac Disorders: Yes Hx Hypertension: Yes - Pulmonary Hx Respiratory Disorders: No - Neurological Hx Neurological Disorder: Yes Hx Migraine: Yes - HEENT Hx HEENT Disorder: No - Renal Hx Renal Disorder: Yes Hx Renal Cancer: Yes (Left Kidney Tumor with nephrectomy) - Endocrine/Metabolic Hx Endocrine Disorders: No - Hematological/Oncological Hx Blood Disorders: Yes Hx Anemia: Yes (Iron Def) Hx Cancer: Yes (Renal CA) - Integumentary Hx Dermatological Disorder: No - Musculoskeletal/Rheumatological Hx Musculoskeletal Disorders: Yes Hx Falls: Yes - Gastrointestinal Hx Gastrointestinal Disorders: Yes Hx Gastroesophageal Reflux: Yes - Genitourinary/Gynecological Hx Genitourinary Disorders: No - Psychiatric Hx Psychophysiologic Disorder: Yes Hx Anxiety: Yes Hx Depression: Yes Hx Substance Use: Yes (marijuana) - Surgical History Hx Appendectomy: Yes Other/Comment: left nephrectomy - Anesthesia Hx Anesthesia: Yes Hx Anesthesia Reactions: No Hx Malignant Hyperthermia: No Family/Social History - Physician Review Nursing Documentation Reviewed: Yes Family/Social History: Unknown Family HX Smoking Status: Former Smoker Hx Alcohol Use: Yes Frequency of alcohol use: Socially Hx Substance Use: Yes (marijuana) Allergies/Home Meds Allergies/Adverse Reactions: Allergies morphine Allergy (Verified 09/13/16 14:23) RASH Home Medications: Home Meds Medication Instructions Recorded Confirmed Losartan [Cozaar] 50 mg PO DAILY 10/26/16 12/23/16 Omeprazole [Omeprazole] 20 mg PO DAILY 10/26/16 12/23/16 Review of Systems - Review of Systems Constitutional: absent: Fatigue, Fevers Eyes: absent: Vision Changes ENT: absent: Hearing Changes Respiratory: absent: SOB, Cough Cardiovascular: absent: Chest Pain Gastrointestinal: absent: Abdominal Pain, Diarrhea, Nausea, Vomiting Musculoskeletal: Arthralgias, Joint Swelling. absent: Back Pain, Neck Pain, Myalgias Skin: absent: Rash, Pruritis Physical Exam Vital Signs Reviewed: Yes Temperature: Afebrile Blood Pressure: Normal Pulse: Regular Respiratory Rate: Normal Appearance: Positive for: Well-Appearing, Non-Toxic Pain Distress: Moderate Mental Status: Positive for: Alert and Oriented X 3 - Systems Exam Head: Present: Atraumatic, Normocephalic Pupils: Present: PERRL Extroacular Muscles: Present: EOMI Conjunctiva: Present: Normal Mouth: Present: Moist Mucous Membranes Neck: Present: Normal Range of Motion Respiratory/Chest: Present: Clear to Auscultation, Good Air Exchange. No: Respiratory Distress, Accessory Muscle Use Cardiovascular: Present: Regular Rate and Rhythm, Normal S1, S2. No: Murmurs Abdomen: Present: Normal Bowel Sounds. No: Tenderness, Distention, Peritoneal Signs Back: Present: Normal Inspection Upper Extremity: Present: Normal Inspection. No: Cyanosis, Edema Lower Extremity: Present: Normal Inspection, Other (Rt. knee: +ttp and mild swelling to the anterior aspect of the joint, no deformity, no cellulitis or streaking, FROM without limitation, sensation intact, motor 5/5, negative nabeel and hou signs. ). No: Edema Neurological: Present: GCS=15, Speech Normal, Motor Func Grossly Intact, Gait Normal, Memory Normal Skin: Present: Warm, Dry, Normal Color. No: Rashes Psychiatric: Present: Alert, Oriented x 3, Normal Insight, Normal Concentration Vital Signs Temp Pulse Resp BP Pulse Ox 12/23/16 13:14 98.6 F 81 18 130/89 97 Medical Decision Making - RAD Interpretation Low Pressure Boiler Operator: Radiologist ED Course and Treatment: 12/23/16 14:10 I was available for consultation during PA evaluation. The chart was reviewed by me, and I agree with disposition. The documented history was done by the physician truckman. The documented physical exam was done by the physician truckman. The documented procedures were done by the physician truckman. (LauraShaquille) 12/23/16 13:34 -Indocin -xray -Pt. stated that she has scheduled appointment to see her own pmd upcoming this week Friday. -knee immobilize/crutches 12/23/16 14:08 -xray show no fracture or dislocation. -Pt. feels well with pain decreased. -Discharge home with naproxen, natividad wrap, crutches, ice compression, non-weight bearing, follow up with your own pmd and orthopedic within 2 days, return to the ER for any new or worsening signs or symptoms. (Petr Daniel) - RAD Interpretation Radiology Orders: 12/23/16 13:27 KNEE W PATELLA RIGHT 3 VIEW [RAD] Stat normal radiograph of the rt. knee (Petr Daniel) - Medication Orders Current Medication Orders: Discontinued Medications Indomethacin (Indocin) 50 mg PO STAT STA Stop: 12/23/16 13:28 Last Admin: 12/23/16 13:40 Dose: 50 mg - PA / ACTING SECTION CHIEF / Resident Statement MD/DO has reviewed & agrees with the documentation as recorded. Disposition/Present on Arrival - Present on Arrival Any Indicators Present on Arrival: No History of DVT/PE: No History of Uncontrolled Diabetes: No Urinary Catheter: No History of Decub. Ulcer: No History Surgical Site Infection Following: None - Disposition Have Diagnosis and Disposition been Completed?: Yes Disposition Time: 13:36 Patient Plan: Discharge - Disposition Diagnosis: Knee injury, Knee swelling Disposition: HOME/ ROUTINE Patient Problems: Current Active Problems Problem Status Onset Knee injury Acute Knee swelling Acute Condition: GOOD Additional Instructions: -Discharge home with naproxen, natividad wrap, crutches, ice compression, non-weight bearing, follow up with your own pmd and orthopedic within 2 days, return to the ER for any new or worsening signs or symptoms. Prescriptions: Naproxen 500 mg PO BID PRN #20 tab PRN Reason: Other Referrals: Isaias Vick MD [Staff Provider] - Follow up with primary Forms: [employer] ([place]), WORK NOTE
--- NOTE | 2016-12-23 14:25 | RAD ---
PROCEDURE: Right Knee Radiographs. HISTORY: rt. knee injury yesterday, chronic rt. knee pain COMPARISON: None. FINDINGS: BONES: Normal. No fracture. JOINTS: Normal. No osteoarthritis. JOINT EFFUSION: None. OTHER FINDINGS: Patellar view is unremarkable IMPRESSION: Normal radiographs of the right knee.
== END 2016-12-23 13:40 | disposition home or self-care (01) ==
LOC: ED 12:53
DX: S89.91XA Unspecified injury of right lower leg, initial encounter (principal); X58.XXXA Exposure to other specified factors, initial encounter; M25.461 Effusion, right knee

== ENCOUNTER 2017-07-11 17:56 | Emergency (ER) | payer MEDICAID ==
[2017-07-11 17:56] VITALS: BMI 36.9
--- NOTE | 2017-07-11 18:19 | ED PDOC ---
"Arrival/HPI - General Chief Complaint: High Blood Pressure Time Seen by Provider: 07/11/17 18:06 Historian: Patient - History of Present Illness Narrative History of Present Illness (Text): 07/11/17 18:11 41 y/o female, pmh including htn/anemia, allergic to morphine, biba c/o headache and dizziness x 2 days. Pt. stated that she started with acute onset of headache about 2 days ago with no fall or trauma history, throbbing, lt. sided with no temporal headache, headache with dizziness today, admits been stressing out for the past couple days due to the family issues at home, stated that she feels the headache aching as well, no numbness or tingling, no rash, no night sweat, no dizziness, no change in vision, no slurred speech, no urinary or bowel incontinence or retention, no other medical or psychological complaints. Past Medical History - Provider Review Nursing Documentation Reviewed: Yes - Infectious Disease Hx of Infectious Diseases: None - Tetanus Immunization Tetanus Immunization: Unknown - Cardiac Hx Cardiac Disorders: Yes Hx Hypertension: Yes - Pulmonary Hx Respiratory Disorders: No - Neurological Hx Neurological Disorder: Yes Hx Migraine: Yes - HEENT Hx HEENT Disorder: No - Renal Hx Renal Disorder: Yes Hx Renal Cancer: Yes (Left Kidney Tumor with nephrectomy) - Endocrine/Metabolic Hx Endocrine Disorders: No - Hematological/Oncological Hx Blood Disorders: Yes Hx Anemia: Yes (Iron Def) Hx Cancer: Yes (Renal CA) - Integumentary Hx Dermatological Disorder: No - Musculoskeletal/Rheumatological Hx Musculoskeletal Disorders: Yes Hx Falls: Yes - Gastrointestinal Hx Gastrointestinal Disorders: Yes Hx Gastroesophageal Reflux: Yes - Genitourinary/Gynecological Hx Genitourinary Disorders: No - Psychiatric Hx Psychophysiologic Disorder: Yes Hx Anxiety: Yes Hx Depression: Yes Hx Substance Use: Yes (marijuana) - Surgical History Hx Appendectomy: Yes Other/Comment: left nephrectomy - Anesthesia Hx Anesthesia: Yes Hx Anesthesia Reactions: No Hx Malignant Hyperthermia: No Family/Social History - Physician Review Nursing Documentation Reviewed: Yes Family/Social History: Unknown Family HX Smoking Status: Former Smoker Hx Alcohol Use: Yes Frequency of alcohol use: Socially Hx Substance Use: Yes (marijuana) Allergies/Home Meds Allergies/Adverse Reactions: Allergies morphine Allergy (Verified 07/11/17 18:04) RASH Home Medications: Home Meds Medication Instructions Recorded Confirmed Losartan [Cozaar] 50 mg PO DAILY 10/26/16 07/11/17 Omeprazole [Omeprazole] 20 mg PO DAILY 10/26/16 07/11/17 Review of Systems - Review of Systems Constitutional: Fatigue. absent: Fevers Eyes: absent: Vision Changes ENT: absent: Hearing Changes Respiratory: absent: SOB, Cough Cardiovascular: absent: Chest Pain Gastrointestinal: absent: Abdominal Pain, Diarrhea, Nausea, Vomiting Musculoskeletal: absent: Arthralgias, Back Pain Skin: absent: Rash, Pruritis Neurological: Headache, Dizziness, Disequilibrium. absent: Focal Weakness, Gait Changes, Speech Changes, Facial Droop, Seizure Psychiatric: absent: Anxiety, Depression, Suicidal Ideation Physical Exam Vital Signs Temp Pulse Resp BP Pulse Ox 07/11/17 18:28 98.2 F 86 24 135/86 99 - Systems Exam Head: Present: Atraumatic, Normocephalic Pupils: Present: PERRL Extroacular Muscles: Present: EOMI Conjunctiva: Present: Normal Ears: Present: NORMAL TM, Normal Canal. No: Erythema Mouth: Present: Moist Mucous Membranes Neck: Present: Normal Range of Motion, Trachea Midline. No: Meningeal Signs, MIDLINE TENDERNESS, Paraspinal Tenderness, Lymphadenopathy Respiratory/Chest: Present: Clear to Auscultation, Good Air Exchange. No: Respiratory Distress, Accessory Muscle Use Cardiovascular: Present: Regular Rate and Rhythm, Normal S1, S2. No: Murmurs Abdomen: Present: Normal Bowel Sounds. No: Tenderness, Distention, Peritoneal Signs Back: Present: Normal Inspection. No: CVA Tenderness Upper Extremity: Present: Normal Inspection. No: Cyanosis, Edema Lower Extremity: Present: Normal Inspection. No: Edema Neurological: Present: GCS=15, CN II-XII Intact, Speech Normal, Motor Func Grossly Intact, Gait Normal, Memory Normal Skin: Present: Warm, Dry, Normal Color. No: Rashes Psychiatric: Present: Alert, Oriented x 3, Normal Insight, Normal Concentration Medical Decision Making ED Course and Treatment: 07/11/17 18:25 -labs/ua/cardiac enzyme -ekg -ct head -IV reglan/meclizine/flulid -observe and reassess 07/11/17 21:40 -EKG: NSR @ 77 BPM, no ST elevation or depression, no T wave inversion, compared with previous ekg. -Rapid flu is negative -Urine hcg is negative. -Orthostatic v/s is within normal limit -CT head is pending. -Labs are non-significant except potassium 3.4 (potassium chloride 20meq po ordered), hgb 10.9 from 10.9 (chronic). -UA show no UTI -Headache resolved with the reglan and IVF, dizziness resolved as well, walking around with normal gait and posture, BP is vitally stable, no focal neurological deficits. -Pt. wants to leave immediately as she has family emergency -[facility] ER The patient refuses to stay in the Emergency Room (ER) to continue the care and wishes to leave the emergency department against my medical advice. Patient was told that staying in the ER is necessary and a full explanation of the reasons why was given, and understood by the patient with alert and oriented x4. The risk of leaving were explained in laymans term and including but not limited to intracranial hemorrhage, stroke, dissection, organ failure, pain, worsening of condition, permanent disability and from an undiagnosed or untreated condition. The patient accepts these risks, and is in my judgment is competent and capable of understanding the clinical situation and explanation of the risk of leaving. The patient is able to verbally repeated me back the above explained risks and benefits back to me, and verbally expressed understanding. Patient was given the opportunity to ask questions and change mind. The patient was instructed regarding the best care for the present symptoms, and to follow up as soon as possible with the primary care doctor including specialist or return to the emergency department at any time for continuing care. -You leave against medical advice. You are advised to wait for the CT head result, return to the ER immediately for continue of the care. Take tylenol at home for pain as needed. 07/11/17 22:06 -CT Head: No evidence of acute intracranial hemorrhage. -Pt. called by me and awared of the CT head result. - Lab Interpretations Lab Results: 07/11/17 18:38 07/11/17 18:38 Lab Results 07/11/17 19:50: Urine Color Yellow, Urine Appearance Clear, Urine pH 6.5, Ur Specific [place] 1.020, Urine Protein Negative, Urine Glucose (UA) Negative, Urine Ketones Negative, Urine Blood Trace-intact H, Urine Nitrate Negative, Urine Bilirubin Negative, Urine Urobilinogen 2.0 H, Ur Leukocyte Esterase Negative, Urine RBC 0 - 2, Urine WBC 1 - 3, Ur Epithelial Cells 4 - 5, Urine Bacteria Few 07/11/17 18:38: Beta HCG, Quant < 2.39 07/11/17 18:38: PT 12.3, INR 1.08, APTT 29.1 07/11/17 18:38: WBC 8.9 D, RBC 3.88, Hgb 10.9 L, Hct 33.4 L, MCV 86.1, MCH 28.1 , MCHC 32.6, RDW 13.9, Plt Count 267, MPV 10.5, Gran % 57.7, Lymph % (Auto) 35.4 H, Boyd % (Auto) 5.6, Eos % (Auto) 1.1 L, Baso % (Auto) 0.2, Gran # 5.12, Lymph # (Auto) 3.1, Boyd # (Auto) 0.5, Eos # (Auto) 0.1, Baso # (Auto) 0.02 07/11/17 18:38: Sodium 140, Potassium 3.4 L, Chloride 104, Carbon Dioxide 24, Anion Gap 15, BUN 10, Creatinine 1.0, Est GFR ( Amer) > 60, Est GFR (Non- Af Amer) > 60, Random Glucose 97, Calcium 9.6, Total Bilirubin 0.5, AST 20, ALT 31, Alkaline Phosphatase 46, Lactate Dehydrogenase 604, Total Creatine Kinase 173, Troponin I < 0.01, Total Protein 8.0, Albumin 4.4, Globulin 3.6, Albumin/ Globulin Ratio 1.2 07/11/17 18:38: Influenza Typ A,B (EIA) Negative for flu a/b - RAD Interpretation Radiology Orders: 07/11/17 18:19 HEAD W/O CONTRAST [CT] Stat FINDINGS: Brain: Streak artifact limits evaluation of the skull base. No evidence of acute intracranial hemorrhage. Correlate clinically.. No significant white matter disease. No edema. Ventricles: Unremarkable. No ventriculomegaly. Bones/joints: No displaced fracture. The Soft tissues: Unremarkable. Sinuses: Unremarkable as visualized. No acute sinusitis. Mastoid air cells: Unremarkable as visualized. No mastoid effusion. IMPRESSION: Streak artifact limits evaluation of the skull base. No evidence of acute intracranial hemorrhage. Correlate clinically. Thank you for allowing us to participate in the care of your patient. MARK LOBATO | Preliminary Radiology Report EFFICIENCY MANAGER (QA) DISCREPANCY? If there is a discrepancy between the preliminary and final interpretation, please notify [facility] via [email or web address]. If you do not have access to our QA portal, call our QA team at [phone] CONFIDENTIALITY STATEMENT This report is intended only for the use of the referring physician, and only in accordance with law, If you received this in error, call [phone] Page 2 of 2 Dictated and Authenticated by: Elias Johnson MD 07/11/2017 10:03 PM Eastern Time ([place] & [place]) Matrix Bath Attendant: Radiologist - EKG Interpretation EKG Interpretation (Text): 07/11/17 19:39 -EKG: NSR @ 77 BPM, no ST elevation or depression, no T wave inversion, compared with previous ekg. Interpreted by ED Physician: Yes Type: 12 lead EKG Comparison: Com.w/previous EKG - Medication Orders Current Medication Orders: Sodium Chloride (Sodium Chloride 0.9%) 1,000 mls @ 1,000 mls/hr IV .Q1H LEXII Discontinued Medications Sodium Chloride (Sodium Chloride 0.9%) 1,000 mls @ 125 mls/hr IV .Q8H LEXII Last Admin: 07/11/17 19:41 Dose: 125 mls/hr eMAR Start Stop Document 07/11/17 19:41 OCS (Rec: 07/11/17 19:42 OCS [id number]) Intravenous Solution Start Date 07/11/17 Start Time 19:41 Meclizine HCl (Antivert) 50 mg PO STAT STA Stop: 07/11/17 18:23 Last Admin: 07/11/17 19:29 Dose: 50 mg Metoclopramide HCl (Reglan) 10 mg IVP STAT STA Stop: 07/11/17 18:20 Last Admin: 07/11/17 19:28 Dose: 10 mg IVP Administration Document 07/11/17 19:28 OCS (Rec: 07/11/17 19:29 OCS [id number]) Charges for Administration # of IVP Administrations 1 Potassium Chloride (K-Dur 20 Meq Er Tab) 20 meq PO STAT STA Stop: 07/11/17 19:47 - 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 Disposition/Present on Arrival - Present on Arrival Any Indicators Present on Arrival: No History of DVT/PE: No History of Uncontrolled Diabetes: No Urinary Catheter: No History of Decub. Ulcer: No History Surgical Site Infection Following: None - Disposition Have Diagnosis and Disposition been Completed?: Yes Diagnosis: Headache, Non compliance w medication regimen Disposition: AGAINST MEDICAL ADVICE Disposition Time: 19:40 Patient Problems: Current Active Problems Problem Status Onset Headache Acute Non compliance w medication regimen Acute Condition: IMPROVED Additional Instructions: -You leave against medical advice. You are advised to wait for the CT head result, return to the ER immediately for continue of the care. Take tylenol at home for pain as needed. Referrals: [facility] Jeff Remendoza, [Non-Staff] - Follow up with primary Andria Contreras MD [Staff Provider] - Follow up with primary Forms: [employer] Connect (Bulgarian), WORK NOTE"
[2017-07-11 18:29] VITALS: BP 135/86; PULSE 86; RESP 24; TEMP 98.2; O2SAT 99
[2017-07-11] MEDS ORDERED: Sodium Chloride 0.9% 1,000 ML IV SCH ×2 (18:30→19:46)
[2017-07-11 19:29] LABS: BASO # 0.02 K/mm3 (0.0-2.0); BASO % 0.2 % (0.0-3.0); EOS # 0.1 (0.0-0.7); EOS % 1.1 % (1.5-5.0); GRAN # 5.12 (1.4-6.5); GRAN % 57.7 % (50.0-68.0); HEMOGLOBIN 10.9 g/dL (12.0-16.0); LYMPH # 3.1 (1.2-3.4); LYMPH % 35.4 % (22.0-35.0); MEAN CELL VOLUME 86.1 fl (80.0-105.0); MEAN CORPUSCULAR HEMOGLOBIN 28.1 pg (25.0-35.0); MEAN CORPUSCULAR HGB CONC 32.6 g/dl (31.0-37.0); MEAN PLATELET VOLUME 10.5 fl (7.0-11.0); MONO # 0.5 (0.1-0.6); MONO % 5.6 % (1.0-6.0); RBC 3.88 10^6/uL (3.5-6.1); RED CELL DISTRIBUTION WIDTH 13.9 % (11.5-14.5); WHITE BLOOD COUNT 8.9 10^3/ul (4.5-11.0)
[2017-07-11 19:36] LABS: INR 1.08 (0.93-1.08); PARTIAL THROMBOPLASTIN TIME 29.1 Seconds (25.1-36.5); PROTHROMBIN TIME 12.3 SECONDS (9.4-12.5)
[2017-07-11 19:41] LABS: ALB/GLOB RATIO 1.2 (1.1-1.8); ALBUMIN 4.4 g/dL (3.0-4.8); ALT/SGPT 31 U/L (7-56); AST/SGOT 20 U/L (14-36); BLOOD UREA NITROGEN 10 mg/dL (7-21); CALCIUM 9.6 mg/dL (8.4-10.5); GFR AFRICAN-AMERICAN > 60; GFR NON-AFRICAN AMERICAN > 60
[2017-07-11] MEDS ORDERED: Potassium Chloride 20 mEq ER Tab PO STA (19:46)
[2017-07-11 19:54] LABS: TROPONIN I < 0.01 ng/mL
[2017-07-11 20:17] LABS: PH,URINE 6.5 (4.7-8.0); URINE BILIRUBIN NEGATIVE (NEGATIVE); URINE BLOOD TRACE-INTACT (NEGATIVE); URINE GLUCOSE (UA) NEGATIVE (NEGATIVE); URINE LEUKOCYTE ESTERASE NEGATIVE Leu/uL (NEGATIVE); URINE PROTEIN NEGATIVE mg/dL (<30 mg/dL)
[2017-07-11 20:19] LABS: URINE APPEARANCE CLEAR (CLEAR); URINE COLOR YELLOW (YELLOW)
[2017-07-11 20:24] LABS: URINE RBC 0 - 2 /hpf (0-2)
[2017-07-11 20:25] LABS: URINE BACTERIA FEW (NEG)
--- NOTE | 2017-07-12 10:08 | CT ---
PROCEDURE: CT HEAD WITHOUT CONTRAST. HISTORY: headache x 2 days, r/o bleed COMPARISON: 09/14/2016 TECHNIQUE: Axial computed tomography images were obtained through the head/brain without intravenous contrast. Radiation dose: Total exam DLP = 1213.96 mGy-cm. This CT exam was performed using one or more of the following dose reduction techniques: Automated exposure control, adjustment of the mA and/or kV according to patient size, and/or use of iterative reconstruction technique. FINDINGS: HEMORRHAGE: No intracranial hemorrhage. BRAIN: No mass effect or edema. No atrophy or chronic microvascular ischemic changes. VENTRICLES: Unremarkable. No hydrocephalus. CALVARIUM: Unremarkable. PARANASAL SINUSES: Unremarkable as visualized. No significant inflammatory changes. MASTOID AIR CELLS: Unremarkable as visualized. No inflammatory changes. OTHER FINDINGS: None. IMPRESSION: No acute intracranial abnormalities. No significant findings to account for the clinical presentation. Concordant results (preliminary interpretation) provided by [employer]. Procedure Completed: 20:18 Preliminary ([facility]) Report: Dictated and Authenticated: 22:03 Final Interpretation: 10:05 July 12, 2017.
--- NOTE | 2017-07-12 16:51 | CARD ---
APPROVED REPORT EKG Measurement Heart [id number] <Conclusion> Poor data quality, interpretation may be adversely affected Normal sinus rhythm Minimal voltage criteria for LVH, may be normal variant Borderline ECG
== END 2017-07-11 21:43 | disposition left against medical advice (07) ==
LOC: ED 17:56
DX: R51 Headache (principal); I10 Essential (primary) hypertension; D50.9 Iron deficiency anemia, unspecified; Z87.891 Personal history of nicotine dependence; Z91.19 Patient's noncompliance with other medical treatment and regimen
CPT/HCPCS: 70450; 80053; 81001; 82550; 83615; 84484; 84702; 85025; 85610; 85730; 87804; 93005; 96374; 99284; J2765; J7040

== ENCOUNTER 2017-10-17 12:03 | Emergency (ER) | payer MEDICAID ==
[2017-10-17 12:11] VITALS: O2SAT 99; BMI 37.7
--- NOTE | 2017-10-17 12:20 | ED PDOC ---
Arrival/HPI - General Chief Complaint: GI Problem Historian: Patient - History of Present Illness Narrative History of Present Illness (Text): Patient is a 41 year old female with a past medical history of hypertension and uterine fibroids who presents to the emergency room for evaluation and treatment of nausea and vomiting which began yesterday after eating pizza. States she has experienced several bouts of nonbloody, nonbilious emesis. This morning patient began to experience abdominal pain which remains localized to the epigastric region. Described as being a burning sensation. Also admits to several bouts of nonbloody, loose, watery bowel movements. Further admits to intermittent hot flashes. Denies associated fever, chills, chest pain, shortness of breath, constipation, and urinary symptoms. Past Medical History - Provider Review Nursing Documentation Reviewed: Yes - Travel History Have you recently traveled outside [place] w/in the past 3 mons?: No - Infectious Disease Hx of Infectious Diseases: None - Tetanus Immunization Tetanus Immunization: Unknown - Cardiac Hx Cardiac Disorders: Yes Hx Hypertension: Yes - Pulmonary Hx Respiratory Disorders: No - Neurological Hx Neurological Disorder: Yes Hx Migraine: Yes - HEENT Hx HEENT Disorder: No - Renal Hx Renal Disorder: Yes Hx Renal Cancer: Yes (Left Kidney Tumor with nephrectomy) - Endocrine/Metabolic Hx Endocrine Disorders: No - Hematological/Oncological Hx Blood Disorders: Yes Hx Anemia: Yes (Iron Def) Hx Cancer: Yes (Renal CA) - Integumentary Hx Dermatological Disorder: No - Musculoskeletal/Rheumatological Hx Musculoskeletal Disorders: Yes Hx Falls: Yes - Gastrointestinal Hx Gastrointestinal Disorders: Yes Hx Gastroesophageal Reflux: Yes - Genitourinary/Gynecological Hx Genitourinary Disorders: No - Psychiatric Hx Psychophysiologic Disorder: Yes Hx Anxiety: Yes Hx Depression: Yes Hx Substance Use: Yes (marijuana) - Surgical History Hx Appendectomy: Yes Other/Comment: left nephrectomy - Anesthesia Hx Anesthesia: Yes Hx Anesthesia Reactions: No Hx Malignant Hyperthermia: No Family/Social History - Physician Review Nursing Documentation Reviewed: Yes Family/Social History: No Known Family HX, Unknown Family HX Smoking Status: Former Smoker Hx Alcohol Use: Yes Hx Substance Use: Yes (marijuana) Allergies/Home Meds Allergies/Adverse Reactions: Allergies morphine Allergy (Verified 07/11/17 18:04) RASH Home Medications: Home Meds Medication Instructions Recorded Confirmed Losartan [Cozaar] 50 mg PO DAILY 10/26/16 07/11/17 Omeprazole [Omeprazole] 20 mg PO DAILY 10/26/16 07/11/17 Review of Systems - Physician Review All systems were reviewed & negative as marked: Yes - Review of Systems Constitutional: Normal Eyes: Normal ENT: Normal Respiratory: Normal Cardiovascular: Normal Gastrointestinal: Abdominal Pain, Nausea, Vomiting Musculoskeletal: Normal Skin: Normal Neurological: Normal Endocrine: Normal Hemo/Lymphatic: Normal Psychiatric: Normal Physical Exam Vital Signs Reviewed: Yes Vital Signs Temp Pulse Resp BP Pulse Ox 10/17/17 14:21 98.6 F 10/17/17 13:45 79 18 145/58 L 99 10/17/17 12:10 98.2 F 86 18 148/37 L 99 Temperature: Afebrile Blood Pressure: Hypertensive Pulse: Regular Respiratory Rate: Normal Appearance: Positive for: Well-Appearing, Non-Toxic, Uncomfortable Pain Distress: None Mental Status: Positive for: Alert and Oriented X 3 - Systems Exam Head: Present: Atraumatic, Normocephalic Pupils: Present: PERRL Extroacular Muscles: Present: EOMI Conjunctiva: Present: Normal Mouth: Present: Moist Mucous Membranes Nose (External): Present: Atraumatic Respiratory/Chest: Present: Clear to Auscultation, Good Air Exchange. No: Respiratory Distress, Accessory Muscle Use Cardiovascular: Present: Regular Rate and Rhythm, Normal S1, S2 Abdomen: Present: Tenderness, Distention. No: McBurney's Point Tender Upper Extremity: Present: Normal Inspection Lower Extremity: Present: Normal Inspection Neurological: Present: GCS=15, CN II-XII Intact, Speech Normal, Motor Func Grossly Intact, Normal Sensory Function Skin: Present: Warm, Dry, Other (scar tissue from recent surgery midline, intact , dry, adn no erythema) Psychiatric: Present: Alert, Oriented x 3 Medical Decision Making ED Course and Treatment: Assessment and Plan: Patient is a 41 year old female with a past medical history of hypertension and uterine fibroids who presents to the emergency room for evaluation and treatment of abdominal pain, nausea, and vomiting. Abdominal Pain Nausea/Vomiting Hx of Uterine Fibroids 10/17/17 12:31 - CBC, CMP, Mag, Phos - zofran as antiemetic agent - toradol for pain control - IVF half normal NS @ 100 - CT abdomen pelvis IV contrast 10/17/17 14:42 - CT abdomen pelvis IV contrast reviewed and appreciated - potassium repleted - patient states she experienced non-radiating chest discomfort last night while rolling over, chest discomfort subsided with no acute intervention, denies chest discomfort/pain at this time- EKG ordered 10/17/17 15:05 - EKG reviewed- no major interval changes compared to previous EKG in 2017 - ok for discharge to home - Lab Interpretations Lab Results: 10/17/17 12:30 10/17/17 12:30 Lab Results 10/17/17 12:30: Sodium 140, Potassium 3.3 L, Chloride 100, Carbon Dioxide 26, Anion Gap 17, BUN 11, Creatinine 0.9, Est GFR ( Amer) > 60, Est GFR (Non- Af Amer) > 60, Random Glucose 121 H, Calcium 9.6, Phosphorus 2.8, Magnesium 2.0 , Total Bilirubin 0.4, AST 21, ALT 33, Alkaline Phosphatase 51, Total Protein 8.0, Albumin 4.5, Globulin 3.6, Albumin/Globulin Ratio 1.2 10/17/17 12:30: WBC 10.6, RBC 3.78, Hgb 10.5 L, Hct 31.3 L, MCV 82.8 D, MCH 27.8, MCHC 33.5, RDW 13.9, Plt Count 423, MPV 9.8, Gran % 75.3 H, Lymph % (Auto ) 17.9 L, [place] % (Auto) 3.5, Eos % (Auto) 2.9, Baso % (Auto) 0.4, Gran # 7.96 H , Lymph # (Auto) 1.9, [place] # (Auto) 0.4, Eos # (Auto) 0.3, Baso # (Auto) 0.04 - RAD Interpretation Narrative RAD Interpretations (Text): PROCEDURE: CT Abdomen and Pelvis with contrast HISTORY: abdominal pain COMPARISON: None. TECHNIQUE: Contrast dose: 100 cc of Visipaque Radiation dose: Total exam DLP = 1004 mGy-cm. This CT exam was performed using one or more of the following dose reduction techniques: Automated exposure control, adjustment of the mA and/or kV according to patient size, and/or use of iterative reconstruction technique. FINDINGS: LOWER THORAX: Unremarkable. LIVER: Unremarkable. No gross lesion or ductal dilatation. GALLBLADDER AND BILE DUCTS: Unremarkable. PANCREAS: Unremarkable. No gross lesion or ductal dilatation. SPLEEN: Unremarkable. ADRENALS: Unremarkable. No mass. KIDNEYS AND URETERS: Left nephrectomy VASCULATURE: Unremarkable. No aortic aneurysm. BOWEL: There is mural thickening in the distal small bowel. This could represent inflammatory bowel disease such as Crohn's. Clinical correlation is suggested. APPENDIX: Normal appendix. PERITONEUM: Minimal ascites LYMPH NODES: Unremarkable. No enlarged lymph nodes. BLADDER: Unremarkable. REPRODUCTIVE: 3.2 cm left adnexal cyst. BONES: No acute fracture. OTHER FINDINGS: Subcutaneous inflammatory changes are seen around the umbilicus. This could be secondary to previous hernia repair. There is no herniation of bowel loops. There is a small fluid collection inferior to the umbilicus measuring 26 x 46 mm. This could represent a seroma or abscess. There is no gas within the collection. IMPRESSION: Mural thickening in the distal small bowel consistent with enteritis or inflammatory bowel disease. Subcutaneous fluid collections and inflammatory changes around the umbilicus. No evidence of bowel herniation Radiology Orders: 10/17/17 12:21 ABDOMEN & PELVIS [ABD & PELVIS IV CONTRAST ONLY] [CT] Stat - EKG Interpretation EKG Interpretation (Text): NSR HR 70, QTc 460, T wave inversion in III and AVF, compared to previous EKG in 2017 no major interval changes 10/17/17 15:04 Interpreted by ED Physician: Yes Type: 12 lead EKG Comparison: Similar to previous EKG - Medication Orders Current Medication Orders: Sodium Chloride (Sodium Chloride 0.45%) 1,000 mls @ 100 mls/hr IV .Q10H LEXII Last Admin: 10/17/17 12:47 Dose: 100 mls/hr eMAR Start Stop Document 10/17/17 12:47 MS (Rec: 10/17/17 12:47 [email or web address] Intravenous Solution Start Date 10/17/17 Start Time 12:47 Discontinued Medications Ketorolac Tromethamine (Toradol) 15 mg IVP STAT STA Stop: 10/17/17 12:25 Last Admin: 10/17/17 12:46 Dose: 15 mg MAR Pain Assessment Document 10/17/17 12:46 MS (Rec: 10/17/17 12:47 [email or web address] Pain Reassessment Is this a pain reassessment? No Sleep Is patient sleeping during reassessment? No Presence of Pain Presence of Pain Yes Location Pain Location Body Site Abdomen Description Description Constant Intensity of Pain at present 9 Pain Behavior Moaning Crying Facial Grimacing IVP Administration Document 10/17/17 12:46 MS (Rec: 10/17/17 12:47 MS [place] [id number]) Charges for Administration # of IVP Administrations 1 Ketorolac Tromethamine (Toradol) 15 mg IVP STAT STA Stop: 10/17/17 14:16 Last Admin: 10/17/17 14:49 Dose: 15 mg MAR Pain Assessment Document 10/17/17 14:49 MS (Rec: 10/17/17 14:50 [email or web address] Pain Reassessment Is this a pain reassessment? No Sleep Is patient sleeping during reassessment? No Presence of Pain Presence of Pain Yes Pain Scale Used Pain Scale Used Numeric Location Pain Location Body Site Abdomen Description Description Constant Intensity of Pain at present 8 Pain Behavior Moaning Crying IVP Administration Document 10/17/17 14:49 MS (Rec: 10/17/17 14:50 [place] [id number]) Charges for Administration # of IVP Administrations 1 Ondansetron HCl (Zofran Inj) 4 mg IVP ONCE ONE Stop: 10/17/17 12:22 Last Admin: 10/17/17 12:44 Dose: 4 mg IVP Administration Document 10/17/17 12:44 MS (Rec: 10/17/17 12:46 [place] [id number]) Charges for Administration # of IVP Administrations 1 Potassium Chloride (Potassium Chloride Oral Soln) 40 meq PO ONCE ONE Stop: 10/17/17 14:04 Last Admin: 10/17/17 14:47 Dose: 40 meq Disposition/Present on Arrival - Present on Arrival Any Indicators Present on Arrival: No History of DVT/PE: No History of Uncontrolled Diabetes: No Urinary Catheter: No History Surgical Site Infection Following: None - Disposition Have Diagnosis and Disposition been Completed?: Yes Diagnosis: Enteritis Disposition: HOME/ ROUTINE Disposition Time: 15:04 Patient Plan: Discharge Patient Problems: Current Active Problems Problem Status Onset Enteritis Acute Condition: GOOD Additional Instructions: MARK LOBATO, thank you for letting us take care of you today. Your provider was Willa Lees MD and you were treated for VOMITING WEAKNESS. The emergency medical care you received today was directed at your acute symptoms. If you were prescribed any medication, please fill it and take as directed. It may take several days for your symptoms to resolve. Return to the Emergency Department if your symptoms worsen, do not improve, or if you have any other problems. Please contact your doctor or call one of the physicians/clinics you have been referred to that are listed on the Patient Visit Information form that is included in your discharge packet. Bring any paperwork you were given at discharge with you along with any medications you are taking to your follow up visit. Our treatment cannot replace ongoing medical care by a primary care provider outside of the emergency department. Thank you for allowing the [facility] team to be part of your care today. If you had an X-Ray or CT scan: A Radiologist will review the ED reading if any change in treatment is needed we will contact you. If you had a blood, urine, or wound culture: It will take several days for the results, if any change in treatment is needed we will contact you. If you had an STI test: It will take 48 hours for the results. Please call after 1 week if you have not heard back. Please follow up with primary care physician. Prescriptions: Ondansetron [Zofran] 8 mg PO Q8H PRN 7 Days tab PRN Reason: Nausea/Vomiting Referrals: Yola Vernon MD [Primary Care Provider] - Follow up with primary Forms: [employer] (Vietnamese)
[2017-10-17] MEDS ORDERED: Sodium Chloride 0.45% 1,000 ML IV SCH (12:45)
[2017-10-17 12:46] LABS: BASO # 0.04 K/mm3 (0.0-2.0); BASO % 0.4 % (0.0-3.0); EOS # 0.3 (0.0-0.7); EOS % 2.9 % (1.5-5.0); GRAN # 7.96 (1.4-6.5); GRAN % 75.3 % (50.0-68.0); HEMOGLOBIN 10.5 g/dL (12.0-16.0); LYMPH # 1.9 (1.2-3.4); LYMPH % 17.9 % (22.0-35.0); MEAN CELL VOLUME 82.8 fl (80.0-105.0); MEAN CORPUSCULAR HEMOGLOBIN 27.8 pg (25.0-35.0); MEAN CORPUSCULAR HGB CONC 33.5 g/dl (31.0-37.0); MEAN PLATELET VOLUME 9.8 fl (7.0-11.0); MONO # 0.4 (0.1-0.6); MONO % 3.5 % (1.0-6.0); RBC 3.78 10^6/uL (3.5-6.1); RED CELL DISTRIBUTION WIDTH 13.9 % (11.5-14.5); WHITE BLOOD COUNT 10.6 10^3/ul (4.5-11.0)
[2017-10-17 12:57] LABS: ALB/GLOB RATIO 1.2 (1.1-1.8); ALBUMIN 4.5 g/dL (3.0-4.8); ALT/SGPT 33 U/L (7-56); AST/SGOT 21 U/L (14-36); BLOOD UREA NITROGEN 11 mg/dL (7-21); CALCIUM 9.6 mg/dL (8.4-10.5); GFR AFRICAN-AMERICAN > 60; GFR NON-AFRICAN AMERICAN > 60
[2017-10-17] MEDS ORDERED: Iodixanol 320 MG/ML 100 ML BOTTLE IV ONE (13:07)
[2017-10-17 13:46] VITALS: BP 145/58; PULSE 79
[2017-10-17] MEDS ORDERED: Potassium Chloride 40 mEq/30 ml LIQ UD PO ONE (14:03)
[2017-10-17 14:22] VITALS: TEMP 98.6
--- NOTE | 2017-10-17 14:33 | CT ---
PROCEDURE: CT Abdomen and Pelvis with contrast HISTORY: abdominal pain COMPARISON: None. TECHNIQUE: Contrast dose: 100 cc of Visipaque Radiation dose: Total exam DLP = 1004 mGy-cm. This CT exam was performed using one or more of the following dose reduction techniques: Automated exposure control, adjustment of the mA and/or kV according to patient size, and/or use of iterative reconstruction technique. FINDINGS: LOWER THORAX: Unremarkable. LIVER: Unremarkable. No gross lesion or ductal dilatation. GALLBLADDER AND BILE DUCTS: Unremarkable. PANCREAS: Unremarkable. No gross lesion or ductal dilatation. SPLEEN: Unremarkable. ADRENALS: Unremarkable. No mass. KIDNEYS AND URETERS: Left nephrectomy VASCULATURE: Unremarkable. No aortic aneurysm. BOWEL: There is mural thickening in the distal small bowel. This could represent inflammatory bowel disease such as Crohn's. Clinical correlation is suggested. APPENDIX: Normal appendix. PERITONEUM: Minimal ascites LYMPH NODES: Unremarkable. No enlarged lymph nodes. BLADDER: Unremarkable. REPRODUCTIVE: 3.2 cm left adnexal cyst. BONES: No acute fracture. OTHER FINDINGS: Subcutaneous inflammatory changes are seen around the umbilicus. This could be secondary to previous hernia repair. There is no herniation of bowel loops. There is a small fluid collection inferior to the umbilicus measuring 26 x 46 mm. This could represent a seroma or abscess. There is no gas within the collection. IMPRESSION: Mural thickening in the distal small bowel consistent with enteritis or inflammatory bowel disease. Subcutaneous fluid collections and inflammatory changes around the umbilicus. No evidence of bowel herniation
[2017-10-17 15:56] VITALS: RESP 16
--- NOTE | 2017-10-17 21:16 | CARD ---
APPROVED REPORT EKG Measurement Heart [id number] <Conclusion> Normal sinus rhythm Voltage criteria for left ventricular hypertrophy Nonspecific T wave abnormality Prolonged QT Abnormal ECG
== END 2017-10-17 15:55 | disposition home or self-care (01) ==
LOC: ED 12:03
DX: K52.9 Noninfective gastroenteritis and colitis, unspecified (principal); I10 Essential (primary) hypertension; D50.9 Iron deficiency anemia, unspecified; Z85.528 Personal history of other malignant neoplasm of kidney; Z87.891 Personal history of nicotine dependence
CPT/HCPCS: 74177; 80053; 83735; 84100; 85025; 93005; 96374; 96375; 96376; 99284; J1885; J2405; J3480; J7030; Q9967